=== PATIENT | female | born 1955 | race Caucasian/White ===

== ENCOUNTER → 2017-06-21 | Outpatient (CLI) | payer OTHER ==
[2017-06-21 13:13] LABS: ADD MAN DIFF? NO
[2017-06-21 13:22] LABS: BASO # 0.1 x10^3/uL (0.0-0.2); BASO % 1 % (0-3); EOS # 0.3 x10^3/uL (0.0-0.7); EOS % 3 % (0-3); HEMATOCRIT 30.9 % (36.0-47.0); HEMOGLOBIN 8.6 g/dL (12.0-15.5); LYMPH # 1.3 x10^3/uL (1.0-4.8); LYMPH % 15 % (24-48); MEAN CORPUSCULAR HEMOGLOBIN 17 pg (25-35); MEAN CORPUSCULAR HGB CONC 28 g/dL (31-37); MEAN CORPUSCULAR VOLUME 60 fL (79-100); MONO # 0.8 x10^3/uL (0.0-1.1); MONO % 9 % (0-9); NEUT # 6.3 x10^3uL (1.8-7.7); NEUT % 72 % (31-73); PLATELET COUNT 356 x10^3/uL (140-400); RED BLOOD COUNT 5.19 x10^6/uL (3.50-5.40); RED CELL DISTRIBUTION WIDTH 20.8 % (11.5-14.5); WHITE BLOOD COUNT 8.7 x10^3/uL (4.0-11.0)
[2017-06-21 13:46] LABS: ALBUMIN 2.8 g/dL (3.4-5.0); ALBUMIN/GLOBULIN RATIO 0.7 (1.0-1.7); ALK PHOS 85 U/L (46-116); ALT (SGPT) 12 U/L (14-59); ANION GAP 8 (6-14); AST (SGOT) 15 U/L (15-37); BLOOD UREA NITROGEN 11 mg/dL (7-20); BUN/CREATININE RATIO 8 (6-20); CALCIUM 8.9 mg/dL (8.5-10.1); CARBON DIOXIDE 31 mmol/L (21-32); CHLORIDE 105 mmol/L (98-107); CREATININE 1.3 mg/dL (0.6-1.0); GFR 41.5; GLUCOSE 104 mg/dL (70-99); POTASSIUM 3.9 mmol/L (3.5-5.1); SODIUM 144 mmol/L (136-145); TOTAL BILIRUBIN 0.5 mg/dL (0.2-1.0)
[2017-06-21 13:51] LABS: VITAMIN-B12 635 pg/mL (247-911)
[2017-06-21 15:08] LABS: ANISOCYTOSIS MOD; HYPOCHROMIA MARKED; MICROCYTOSIS MARKED; PLT ESTIMATE ADEQUATE (ADEQUATE); POIKILOCYTOSIS SLIGHT
[2017-06-21 15:09] LABS: OVALOCYTES FEW; SCHISTOCYTES OCC
== END | disposition home or self-care (01) ==
LOC: LAB 12:46
DX: E55.9 Vitamin D deficiency, unspecified (principal); E53.8 Deficiency of other specified B group vitamins; Z91.81 History of falling
CPT/HCPCS: 36415; 80053; 82306; 82607; 85025

== ENCOUNTER 2018-10-16 15:18 | Inpatient (IN) | payer OTHER, MEDICAID ==
[2018-10-16] VITALS (7 sets, daily range): BP systolic 141–173; BP diastolic 66–84
[~2018-10-16] VITALS: Ht 154.9 cm; Wt 57.4 kg
[~2018-10-16 15:18] MED LIST: ALBU2.5V5 NEB; ALBU2.5V8 IH; ASPI-630 PO; BUDE10.2 IH; CALC1TAB80 PO; CHOL100013 PO; CRESTOR20 MG PO; CYCL10TA2 PO; FLUT16SP NS; GABA300C18 PO; LISI10TA2 PO; MULT1TAB52 PO; PANT40TA5 PO; RANI150T2 PO; TIOT18CA IH
[2018-10-16 15:57] LABS: BILIRUBIN,URINE NEGATIVE (NEG); CLARITY,URINE CLEAR; COLOR,URINE YELLOW; NITRITE,URINE NEGATIVE (NEG); PROTEIN,URINE NEGATIVE (NEG-TRACE); UROBILINOGEN,URINE 0.2 mg/dL (0.2 mg/dL)
[2018-10-16 15:58] LABS: BASO % 0 % (0-3); EOS # 0.1 x10^3/uL (0.0-0.7); EOS % 1 % (0-3); HEMATOCRIT 45.4 % (36.0-47.0); HEMOGLOBIN 15.4 g/dL (12.0-15.5); LYMPH # 1.2 x10^3/uL (1.0-4.8); LYMPH % 14 % (24-48); MEAN CORPUSCULAR HEMOGLOBIN 32 pg (25-35); MEAN CORPUSCULAR HGB CONC 34 g/dL (31-37); MEAN CORPUSCULAR VOLUME 93 fL (79-100); MONO # 0.8 x10^3/uL (0.0-1.1); MONO % 9 % (0-9); NEUT # 6.5 x10^3uL (1.8-7.7); NEUT % 75 % (31-73); PLATELET COUNT 165 x10^3/uL (140-400); RED CELL DISTRIBUTION WIDTH 12.2 % (11.5-14.5); WHITE BLOOD COUNT 8.6 x10^3/uL (4.0-11.0)
[2018-10-16] MEDS ORDERED: IV NORMAL SALINE 1000ML BAG 1,000 ML IV ONE (16:00)
[2018-10-16 16:20] LABS: ALBUMIN 3.7 g/dL (3.4-5.0); ALBUMIN/GLOBULIN RATIO 1.2 (1.0-1.7); CALCIUM 10.5 mg/dL (8.5-10.1); CREATININE 1.1 mg/dL (0.6-1.0); MAGNESIUM 1.9 mg/dL (1.8-2.4); POTASSIUM 3.9 mmol/L (3.5-5.1); TOTAL BILIRUBIN 0.4 mg/dL (0.2-1.0); TOTAL PROTEIN 6.7 g/dL (6.4-8.2)
[2018-10-16 16:20] LABS: BARBITURATES NEG (NEG); BENZODIAZEPINES NEG (NEG); CANNABINOIDS NEG (NEG); COCAINE NEG (NEG); METHADONE NEG (NEG); OPIATES NEG (NEG); PHENCYCLIDINE NEG (NEG)
[2018-10-16 16:21] LABS: AMPHETAMINE/METHAMPHETAMINE NEG (NEG)
[2018-10-16 16:27] LABS: BACTERIA,URINE FEW /HPF (0-FEW); HYALINE CASTS, URINE FEW /HPF; SQUAMOUS EPITHELIAL CELL,UR FEW /LPF; WBC,URINE OCC /HPF (0-4)
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
[2018-10-16 16:37] LABS: ACETAMIN 58.02 mcg/ml (10-30); SALIC 7.3 mg/dL (2.8-20.0)
[2018-10-16] MEDS ORDERED: ONDANSETRON PF 4 MG/2 ML VIAL. IV PRN (16:45)
[2018-10-16] MEDS ORDERED: IBUPROFEN 400 MG TABLET. PO PRN (16:45)
[2018-10-16] MEDS ORDERED: ALBUTEROL SULFATE 2.5 MG/3 ML NEBU. NEB PRN ×2 (16:45→17:15)
[2018-10-16] MEDS ORDERED: ONDANSETRON ODT 4 MG TAB.RAPDIS. PO PRN (16:45)
[2018-10-16 16:46] LABS: CREATINE KINASE 66 U/L (26-192)
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
[2018-10-16] MEDS: PANTOPRAZOLE 40 MG TABLET.DR. PO SCH (17:15)
--- NOTE | 2018-10-16 17:40 | RAD ---
CHEST AP ONLY History: Reported overdose, fall Comparison: None. Findings: Single view of the chest is submitted. There is no infiltrate, pneumothorax, or effusion. The pericardial cardiac silhouette is within normal limits in size. There is some atherosclerotic calcification near aortic arch. Impression: 1. No acute radiographic abnormality is identified. Electronically signed by: Demario Plasencia MD (10/16/2018 5:37 PM) [facility]
[2018-10-16 17:42] LABS: ACETAMIN 46.84 mcg/ml (10-30)
[2018-10-16] MEDS: IPRATRPIUM/ALBUTEROL 0.5/2.5MG 3 ML NEBU. NEB SCH (20:05)
[2018-10-16] MEDS: BUDESONIDE 0.5 MG/2 ML NEBU. NEB SCH (20:05)
--- NOTE | 2018-10-16 20:23 | NUR ---
Pt is demanding to leave and becoming weepy. This RN explains that a social media specialist is on her way to help us determine her personal safety if we discharge her and that the SW has some resources to assist with her (and her Ganga, who called this RN, and spoke at length about the pt's medical history and social situation) homelessness beginning tomorrow at 1100 d/t eviction at [facility] [address] The patient states she took "16 tramadol and 16 tylenol" and that she made a mistake and is apologetic. Our responsibility for her personal safety is discussed. Pt remains agitated and weepy. paged for chin pike.
[2018-10-16] MEDS ORDERED: NON FORMULARY ITEM (Budesonide/Formoterol Fumarate (Symbicort 160-4.5 Mcg Inhaler) 2 PUFF) IH SCH (21:00)
[2018-10-16] MEDS: CYCLOBENZAPRINE 10 MG TABLET. PO SCH ×2 (21:00→22:50)
[2018-10-16] MEDS ORDERED: ATORVASTATIN CALCIUM 40 MG TABLET. PO SCH (21:00)
[2018-10-16 21:05] LABS: ACETAMIN 37.59 mcg/ml (10-30)
--- NOTE | 2018-10-16 21:29 | NUR ---
Heather with PAT team visited with patient and recommends that safety plan be enacted after a reassessment in the morning. No discharge recommended d/t too soon in the timeline since suicide attempt.
[2018-10-16] MEDS ORDERED: NICOTINE 14MG PATCH. TD ONE ×2 (22:47→23:30)
[2018-10-16] MEDS: CALCIUM CARBONATE 500 MG TABLET PO SCH (22:50)
[2018-10-16] MEDS: CHOLECALCIFEROL (VITAMIN D3) 1,000 UNIT TABLET PO SCH (22:50)
[2018-10-16] MEDS: FAMOTIDINE 20 MG TABLET. PO SCH (22:50)
[2018-10-16] MEDS: GABAPENTIN 300 MG CAPSULE. PO SCH (22:50)
[2018-10-16] MEDS: LISINOPRIL 10 MG TABLET PO SCH (22:51)
[2018-10-16] MEDS: ASPIRIN CHEWABLE 81 MG TABLET. PO SCH (22:51)
[2018-10-16] MEDS: IV NORMAL SALINE 1000ML BAG 1,000 ML IV SCH (23:20)
--- NOTE | 2018-10-16 23:59 | NUR ---
Pt is more relaxed following visit by PAT team bilingual social worker. Pt sleeping but arouseable.
[2018-10-17] VITALS (7 sets, daily range): BP systolic 105–125; BP diastolic 53–62
[2018-10-17] MEDS ORDERED: PIPERONYL BUTOXIDE/PYRETHRINS 118ML BOTTLE. TP ONE ×2 (01:00→06:00)
[2018-10-17 05:50] LABS: ACETAMIN < 2 mcg/ml (10-30)
--- NOTE | 2018-10-17 06:14 | EKG ---
[facility] [address] [place] [address] Test Date: 2018-10-16 Test Time: 15:30:51 Pat Name: PONCHO VALENZUELA Department: Room: Gender: F Park Recreation Manager: : 1955 Requested By: AYESHA JARA Order Number: [id number] Reading MD: Measurements Intervals [place] Rate: 74 P: 62 RI: 142 QRS: 24 QRSD: 76 T: -153 QT: 390 QTc: 438 Interpretive Statements SINUS RHYTHM QRS(T) CONTOUR ABNORMALITY CONSIDER ANTEROLATERAL MYOCARDIAL DAMAGE ST & T ABNORMALITY, CONSIDER INFEROLATERAL ISCHEMIA OR LEFT VENTRICULAR STRAIN ABNORMAL ECG RI6.01 Unconfirmed report No previous ECG available for comparison
[2018-10-17] MEDS: IV NORMAL SALINE 1000ML BAG 1,000 ML IV SCH (06:49)
[2018-10-17] MEDS: IPRATRPIUM/ALBUTEROL 0.5/2.5MG 3 ML NEBU. NEB SCH ×2 (08:00→11:19)
[2018-10-17] MEDS: BUDESONIDE 0.5 MG/2 ML NEBU. NEB SCH (08:00)
[2018-10-17] MEDS: CYCLOBENZAPRINE 10 MG TABLET. PO SCH (08:57)
[2018-10-17] MEDS: CHOLECALCIFEROL (VITAMIN D3) 1,000 UNIT TABLET PO SCH (08:57)
[2018-10-17] MEDS: LISINOPRIL 10 MG TABLET PO SCH (08:58)
[2018-10-17] MEDS: PANTOPRAZOLE 40 MG TABLET.DR. PO SCH (08:58)
[2018-10-17] MEDS: FAMOTIDINE 20 MG TABLET. PO SCH (08:58)
[2018-10-17] MEDS: GABAPENTIN 300 MG CAPSULE. PO SCH (08:58)
[2018-10-17] MEDS: CALCIUM CARBONATE 500 MG TABLET PO SCH (08:59)
[2018-10-17] MEDS: ASPIRIN CHEWABLE 81 MG TABLET. PO SCH (08:59)
[2018-10-17] MEDS ORDERED: FLUTICASONE 50MCG/NASAL SPRAY 16GM BOTTLE. NS SCH (09:00)
[2018-10-17] MEDS ORDERED: NON FORMULARY ITEM (Tiotropium Bromide (Spiriva) 1 CAP) IH SCH (09:00)
[2018-10-17] MEDS ORDERED: MULTIVITAMIN with MINERAL TABLET. PO SCH (09:00)
[2018-10-17] MEDS ORDERED: NICOTINE 14MG PATCH. TD SCH (09:00)
--- NOTE | 2018-10-17 10:44 | NUR ---
SS following for discharge planning. Pt is from home with spouse. Pt is with [facility] and has open case with APS. SW from [facility] at the hospital and reported that pt and spouse have had a bed bug issue for years and refuse to get rid of there belongings. She reported that they have now been evicted and are homeless. SS contacted homeless residential hotline and there are no beds available at this time and to call back at 1800. [facility] SW contacted APS worker and APS worker reported that they could get funds for hotel if pt agreed to get rid of all belongings. [facility] SW meeting with pt to discuss. PAT team contacted for evaluation. Jitendra from PAT team coming to evaluate.
--- NOTE | 2018-10-17 12:16 | DS ---
DATE OF DISCHARGE: 10/17/2018 ADMISSION DIAGNOSIS: Ingestion of 16 Tylenol and 16 Ultram. DISCHARGE DIAGNOSES: 1. Resolving ingestion. 2. Depression. 3. Chronic obstructive pulmonary disease. 4. Gastroesophageal reflux disease. 5. Previous stroke. 6. Hyperlipidemia. 7. Hypertension. 8. Myocardial infarction. 9. Chronic back pain. 10. Bulging disk. 11. Eye surgeries. 12. Right knee surgery. CONSULTS: The LOU team. HOSPITAL COURSE: The patient is a pleasant middle-aged female who basically got depressed because she is being evicted. She took 16 Tylenol and 16 Ultram. She was admitted overnight for observation to the ICU. This morning, I saw and examined her. She is smiling and telling jokes. Denies that she is depressed, wants to go home. I am going to consult the psychiatric assessment team. If they agree, we are going to discharge with close outpatient followup. DISPOSITION: Home. ACTIVITY: As tolerated. DIET: Low sodium. MEDICATIONS: Please see the MRAD. TOTAL TIME: 32 minutes. MINGO WILSON DO DR: ROCIO/rishi JOB#: [id number] / [id number]
--- NOTE | 2018-10-17 13:07 | NUR ---
Discharge instructions reviewed with patient, verbalized understanding. Patient has a cab coming to pick her up and take her to a clinic where her geriatric social work professor Sendy Garcia is meeting her.
--- NOTE | 2018-10-17 13:50 | NUR ---
Patient was escorted out of hospital via wheelchair by this RN and picked up by [facility].
== END 2018-10-17 13:51 | disposition home or self-care (01) | DRG 918 ==
LOC: ER 15:18 → 1 WEST ICU 16:30
PROVIDERS: ADMIT Internal Medicine; ATTEND Internal Medicine
DX: T39.1X2A Poisoning by 4-Aminophenol derivatives, intentional self-harm, initial encounter (principal); J44.9 Chronic obstructive pulmonary disease, unspecified; E78.00 Pure hypercholesterolemia, unspecified; I10 Essential (primary) hypertension; K21.9 Gastro-esophageal reflux disease without esophagitis; G89.29 Other chronic pain; F41.0 Panic disorder [episodic paroxysmal anxiety]; T40.4X2A Poisoning by other synthetic narcotics, intentional self-harm, initial encounter; F17.210 Nicotine dependence, cigarettes, uncomplicated; E66.3 Overweight; F32.9 Major depressive disorder, single episode, unspecified; E78.5 Hyperlipidemia, unspecified; Z86.73 Personal history of transient ischemic attack (TIA), and cerebral infarction without residual deficits; I25.2 Old myocardial infarction; Z90.710 Acquired absence of both cervix and uterus; Z88.8 Allergy status to other drugs, medicaments and biological substances; Y92.89 Other specified places as the place of occurrence of the external cause; Z68.29 Body mass index [BMI] 29.0-29.9, adult
CPT/HCPCS: 36415; 71045; 80053; 80307; 80329; 81001; 82553; 83735; 84484; 85025; 93005; 94640; G0480; J7030; J7620; J7626; 99285-25

== ENCOUNTER 2019-12-02 11:23 | Inpatient (IN) | payer OTHER, MEDICAID ==
[~2019-12-02] VITALS: Ht 154.9 cm; Wt 61.8 kg
[~2019-12-02 11:23] MED LIST changes: +MULT-445 PO; -MULT1TAB52 PO; -PANT40TA5 PO; +PANT40TA77 PO
[2019-12-02 12:06] LABS: BASO % 1 % (0-3); EOS # 0.2 x10^3/uL (0.0-0.7); EOS % 4 % (0-3); HEMATOCRIT 43.1 % (36.0-47.0); LYMPH # 1.2 x10^3/uL (1.0-4.8); LYMPH % 23 % (24-48); MEAN CORPUSCULAR HEMOGLOBIN 32 pg (25-35); MEAN CORPUSCULAR HGB CONC 35 g/dL (31-37); MEAN CORPUSCULAR VOLUME 91 fL (79-100); MONO # 0.5 x10^3/uL (0.0-1.1); MONO % 9 % (0-9); NEUT # 3.2 x10^3/uL (1.8-7.7); NEUT % 63 % (31-73); PLATELET COUNT 193 x10^3/uL (140-400); RED BLOOD COUNT 4.74 x10^6/uL (3.50-5.40); RED CELL DISTRIBUTION WIDTH 13.2 % (11.5-14.5); WHITE BLOOD COUNT 5.1 x10^3/uL (4.0-11.0)
[2019-12-02 12:08] LABS: CALCIUM 8.9 mg/dL (8.5-10.1); CREATININE 1.2 mg/dL (0.6-1.0); GFR 45.1
[2019-12-02 12:09] LABS: BILIRUBIN,URINE NEGATIVE (NEG); CLARITY,URINE CLEAR; COLOR,URINE YELLOW; NITRITE,URINE NEGATIVE (NEG); PH,URINE 7.5 (<5.0-8.0); PROTEIN,URINE NEGATIVE (NEG-TRACE); UROBILINOGEN,URINE 0.2 mg/dL (0.2 mg/dL)
[2019-12-02 12:14] LABS: ALBUMIN 3.1 g/dL (3.4-5.0); TOTAL BILIRUBIN 0.4 mg/dL (0.2-1.0); TOTAL PROTEIN 6.3 g/dL (6.4-8.2)
[2019-12-02 12:15] LABS: PROTHROMBIN TIME PATIENT 13.2 SEC (11.7-14.0)
[2019-12-02 12:29] LABS: BACTERIA,URINE FEW /HPF (0-FEW); RBC,URINE OCC /HPF (0-2); SQUAMOUS EPITHELIAL CELL,UR FEW /LPF
[2019-12-02 12:30] LABS: AMORPHOUS SEDIMENT,UR PRESENT /HPF
[2019-12-02] MEDS ORDERED: CONTRAST GIVEN. MC PRN (12:30)
[2019-12-02] MEDS ORDERED: IOHEXOL 300 MG/ML 100ML VIAL. IV ONE (12:30)
--- NOTE | 2019-12-02 13:07 | RAD ---
CT brain without contrast. HISTORY: Recent fall, extremity weakness, concern for stroke CT scan of brain was done without contrast. Sinuses are clear. A skull fracture is not identified. There is no mass or shift of the midline. There is mild diffuse atrophy. An acute CVA is not identified. Lateral ventricles are normal in size. There is focal decreased density in the lateral basal ganglia on the right an old small lacunar infarct possible. IMPRESSION: 1. Atrophy. 2. No intracranial hemorrhage. 3. Probable old lacunar infarct right lateral basal ganglia. 4. An acute CVA is not identified. PQRS Compliance Statement: One or more of the following individualized dose reduction techniques were utilized for this examination: 1. Automated exposure control 2. Adjustment of the mA and/or kV according to patient size 3. Use of iterative reconstruction technique Electronically signed by: Laron Montgomery MD (12/02/2019 1:04 PM) [facility]
--- NOTE | 2019-12-02 13:37 | RAD ---
CT ANGIOGRAPHY HEAD AND NECK History:Reason: concern for stroke, EXTREMITY WEAKNESS, RECENT FALL / Spl. Instructions: [id number] 60ML / History: Technique: After bolus of intravenous contrast, volumetric CT data acquisition was acquired of the head and neck. Multiplanar reconstruction images to include MIP and 3-D reconstruction images are submitted. Exposure: One or more of the following individualized dose reduction techniques were utilized for this examination: 1. Automated exposure control 2. Adjustment of the mA and/or kV according to patient size 3. Use of iterative reconstruction technique. Comparison: None Any determination of stenosis is based on NASCET criteria. Head CTA: ICA: Bilateral carotid siphon calcifications with mild narrowing. No occlusion. MCA: No stenosis, occlusion or aneurysm. DEBORA: No stenosis, occlusion or aneurysm. TECHNOLOGY SALES REPRESENTATIVE: No stenosis, occlusion or aneurysm. Basilar artery: No stenosis, occlusion or aneurysm. Distal vertebral arteries: No stenosis, occlusion or aneurysm. CT angiogram neck: Aortic arch: Atheromatous plaque within the aortic arch and branch vessels. Common carotid arteries: Mild narrowing of the left common carotid artery origin. Mild atheromatous plaque. Internal carotid arteries: Heavy calcification within the bilateral carotid bifurcations. Severe 70 percent narrowing of the right proximal internal carotid artery due to soft and calcified plaque. Severe 70 percent narrowing of the left proximal internal carotid artery due to calcified plaque. No occlusion. External carotid arteries: Narrowing of the bilateral external carotid artery origins. Vertebral arteries: Occlusion of the left vertebral artery with intermittent reconstitution via collaterals. Retrograde filling of the distal left vertebral artery. 3 mm left upper lobe pulmonary nodule (series 11 image 1). Soft tissues appear normal. Bones: Multilevel cervical spondylosis most prominent C5-C6 and C6-C7. Multilevel neuroforaminal narrowing. No high-grade canal stenosis. C7 posterior vertebral body hemangioma. Multifocal carious dentition with periodontal disease. Impression: 1. 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 2. High-grade narrowing of the bilateral proximal internal carotid arteries within the neck. 3. Additional atheromatous disease within the head and neck. 4. Tiny left upper lobe pulmonary nodule. Recommend one-year follow-up if high risk. Electronically signed by: Geoffrey Grewal DO (12/02/2019 1:34 PM) [id number]
--- NOTE | 2019-12-02 14:39 | PDOC1 ---
History and Physical Date of Admission Date of Admission DATE: 12/02/19 TIME: 14:39 Identification/Chief Complaint Chief Complaint seen in er , 64 year old female who presents with altered mental status. According to EMS patient was last seen well right before bed last night.// noticed when she got up this morning to make breakfast she was not acting right. // was speaking abnormally. He noted she was generally weak. History is limited from the patient. She is oriented to place and time. // she feels very lethargic. She denies any pain. She denies any headache. fell and hit her head [address] HEAD C/W OLD RIGHT LACUNAR INFARCT Past Medical History Cardiovascular: HTN Pulmonary: Bronchitis, COPD Musculoskeletal: Osteoarthritis Past Surgical History Past Surgical History: No pertinent history Family History Family History: Hypertension, Family History Unknown Social History Smoke: <1 pack per day ALCOHOL: occassional Drugs: None Current Medications Current Medications Current Medications Iohexol (Omnipaque 300 Mg/ml) 60 ml 1X ONCE IV Last administered on 12/02/19at 12:48; Start 12/02/19 at 12:30; Stop 12/02/19 at 12:31; Status DC Info (CONTRAST GIVEN -- Rx MONITORING) 1 each PRN DAILY PRN MC SEE COMMENTS; Start 12/02/19 at 12:30; Stop 12/04/19 at 12:29 Active Scripts Active Reported Aspirin 81 Mg Tab.chew 1 Tab PO DAILY Vitamin D (Cholecalciferol (Vitamin D3)) 1,000 Unit Capsule 400 Unit PO BID Multivitamins (Multivitamin) 1 Each Tablet 1 Tab PO DAILY Calcium 600 + Vit D Tablet (Calcium Carbonate/Vitamin D3) 1 Each Tablet 1 Each PO BID Cyclobenzaprine Hcl 10 Mg Tablet 1 Tab PO TID Fluticasone Propionate Nasal [place] (Fluticasone Propionate) 16 Gm [place].susp 1 [place] NS DAILY Symbicort 160-4.5 Mcg Inhaler (Budesonide/Formoterol Fumarate) 10.2 Gm Hfa.aer.ad 2 Puff IH BID Spiriva (Tiotropium [place]) 18 Mcg Cap.w.dev 1 Cap IH DAILY Proair Hfa Inhaler (Albuterol Sulfate) 8.5 Gm Hfa.aer.ad 2 Puff IH PRN Q4-6HRS Ranitidine Hcl 150 Mg Tablet 1 Tab PO BID Pantoprazole Sodium 40 Mg Tablet. 1 Tab PO BID Lisinopril 10 Mg Tablet 1 Tab PO DAILY Gabapentin (Gabapentin) 300 Mg Capsule 1 Cap PO BID Crestor (Rosuvastatin Calcium) 20 Mg Tablet 1 Tab PO DAILY Albuterol Sulfate Neb Soln (Albuterol Sulfate) 2.5 Mg/3 Ml Vial.neb 1 Vial NEB QID Allergies Allergies: Coded Allergies: amitriptyline (Verified Allergy, Intermediate, 12/16/14) esomeprazole (Verified Allergy, Intermediate, RASH, 12/16/14) Physical Exam Physical Exam General: Lethargic, NAD. Well Nourished, well hydrated. Cooperative HEENT: Atraumatic, EOMI, PERRL, airway patent, moist oral mucosa POOR DENTITION Neck: Supple, trachea midline Respiratory: CTA bilaterally, normal effort, no wheezing/crackles CV: RRR, no murmur, cap refill <2 GI: Soft, nondistended, nontender, no masses MSK: No obvious deformities Skin: Warm, dry, intact Neuro: A&O x3, speech slow and slurred, diffuse weakness worse on the right arm and leg, right-sided facial droop, sensation intact Psych: Normal affect, normal mood, not suicidal or homicidal General: Cooperative, No acute distress HEENT: Atraumatic, EOMI Lungs: Normal air movement Heart: RRR Breasts: Not examined Abdomen: Normal bowel sounds, Soft Rectal Exam: not examined PELVIC: Examination not indicated Extremities: No cyanosis Skin: No breakdown Psych/Mental Status: Mood NL Vitals Vitals Vital Signs Date Time Temp Pulse Resp B/P (MAP) Pulse Ox O2 Delivery O2 Flow Rate FiO2 12/02/19 14:24 62 174/81 (112) 97 Room Air 12/02/19 11:23 98.2 16 98.2 Labs Labs Laboratory Tests Test 12/02/19 11:40 12/02/19 11:45 Urine Collection Type Unknown Urine Color Yellow Urine Clarity Clear Urine pH 7.5 (<5.0-8.0) Urine Specific [place] 1.015 (1.000-1.030) Urine Protein Negative mg/dL (NEG-TRACE) Urine Glucose (UA) Negative mg/dL (NEG) Urine Ketones (Stick) Negative mg/dL (NEG) Urine Blood Negative (NEG) Urine Nitrite Negative (NEG) Urine Bilirubin Negative (NEG) Urine Urobilinogen Dipstick 0.2 mg/dL (0.2 mg/dL) Urine Leukocyte Esterase Small (NEG) Urine RBC Occ /HPF (0-2) Urine WBC 5-10 /HPF (0-4) Urine Squamous Epithelial Cells Few /LPF Urine Amorphous Sediment Present /HPF Urine Bacteria Few /HPF (0-FEW) White Blood Count 5.1 x10^3/uL (4.0-11.0) Red Blood Count 4.74 x10^6/uL (3.50-5.40) Hemoglobin 15.0 g/dL (12.0-15.5) Hematocrit 43.1 % (36.0-47.0) Mean Corpuscular Volume 91 fL (79-100) Mean Corpuscular Hemoglobin 32 pg (25-35) Mean Corpuscular Hemoglobin Concent 35 g/dL (31-37) Red Cell Distribution Width 13.2 % (11.5-14.5) Platelet Count 193 x10^3/uL (140-400) Neutrophils (%) (Auto) 63 % (31-73) Lymphocytes (%) (Auto) 23 % (24-48) Monocytes (%) (Auto) 9 % (0-9) Eosinophils (%) (Auto) 4 % (0-3) Basophils (%) (Auto) 1 % (0-3) Neutrophils # (Auto) 3.2 x10^3/uL (1.8-7.7) Lymphocytes # (Auto) 1.2 x10^3/uL (1.0-4.8) Monocytes # (Auto) 0.5 x10^3/uL (0.0-1.1) Eosinophils # (Auto) 0.2 x10^3/uL (0.0-0.7) Basophils # (Auto) 0.0 x10^3/uL (0.0-0.2) Prothrombin Time 13.2 SEC (11.7-14.0) Prothromb Time International Ratio 1.0 (0.8-1.1) Sodium Level 141 mmol/L (136-145) Potassium Level 4.0 mmol/L (3.5-5.1) Chloride Level 106 mmol/L (98-107) Carbon Dioxide Level 28 mmol/L (21-32) Anion Gap 7 (6-14) Blood Urea Nitrogen 18 mg/dL (7-20) Creatinine 1.2 mg/dL (0.6-1.0) Estimated GFR (Cockcroft-Gault) 45.1 BUN/Creatinine Ratio 15 (6-20) Glucose Level 104 mg/dL (70-99) Calcium Level 8.9 mg/dL (8.5-10.1) Total Bilirubin 0.4 mg/dL (0.2-1.0) Aspartate Amino Transf (AST/SGOT) 17 U/L (15-37) Alanine Aminotransferase (ALT/SGPT) 18 U/L (14-59) Alkaline Phosphatase 66 U/L (46-116) Troponin I Quantitative < 0.017 ng/mL (0.000-0.055) Total Protein 6.3 g/dL (6.4-8.2) Albumin 3.1 g/dL (3.4-5.0) Albumin/Globulin Ratio 1.0 (1.0-1.7) Laboratory Tests Test 12/02/19 11:40 12/02/19 11:45 Urine Collection Type Unknown Urine Color Yellow Urine Clarity Clear Urine pH 7.5 (<5.0-8.0) Urine Specific [place] 1.015 (1.000-1.030) Urine Protein Negative mg/dL (NEG-TRACE) Urine Glucose (UA) Negative mg/dL (NEG) Urine Ketones (Stick) Negative mg/dL (NEG) Urine Blood Negative (NEG) Urine Nitrite Negative (NEG) Urine Bilirubin Negative (NEG) Urine Urobilinogen Dipstick 0.2 mg/dL (0.2 mg/dL) Urine Leukocyte Esterase Small (NEG) Urine RBC Occ /HPF (0-2) Urine WBC 5-10 /HPF (0-4) Urine Squamous Epithelial Cells Few /LPF Urine Amorphous Sediment Present /HPF Urine Bacteria Few /HPF (0-FEW) White Blood Count 5.1 x10^3/uL (4.0-11.0) Red Blood Count 4.74 x10^6/uL (3.50-5.40) Hemoglobin 15.0 g/dL (12.0-15.5) Hematocrit 43.1 % (36.0-47.0) Mean Corpuscular Volume 91 fL (79-100) Mean Corpuscular Hemoglobin 32 pg (25-35) Mean Corpuscular Hemoglobin Concent 35 g/dL (31-37) Red Cell Distribution Width 13.2 % (11.5-14.5) Platelet Count 193 x10^3/uL (140-400) Neutrophils (%) (Auto) 63 % (31-73) Lymphocytes (%) (Auto) 23 % (24-48) Monocytes (%) (Auto) 9 % (0-9) Eosinophils (%) (Auto) 4 % (0-3) Basophils (%) (Auto) 1 % (0-3) Neutrophils # (Auto) 3.2 x10^3/uL (1.8-7.7) Lymphocytes # (Auto) 1.2 x10^3/uL (1.0-4.8) Monocytes # (Auto) 0.5 x10^3/uL (0.0-1.1) Eosinophils # (Auto) 0.2 x10^3/uL (0.0-0.7) Basophils # (Auto) 0.0 x10^3/uL (0.0-0.2) Prothrombin Time 13.2 SEC (11.7-14.0) Prothromb Time International Ratio 1.0 (0.8-1.1) Sodium Level 141 mmol/L (136-145) Potassium Level 4.0 mmol/L (3.5-5.1) Chloride Level 106 mmol/L (98-107) Carbon Dioxide Level 28 mmol/L (21-32) Anion Gap 7 (6-14) Blood Urea Nitrogen 18 mg/dL (7-20) Creatinine 1.2 mg/dL (0.6-1.0) Estimated GFR (Cockcroft-Gault) 45.1 BUN/Creatinine Ratio 15 (6-20) Glucose Level 104 mg/dL (70-99) Calcium Level 8.9 mg/dL (8.5-10.1) Total Bilirubin 0.4 mg/dL (0.2-1.0) Aspartate Amino Transf (AST/SGOT) 17 U/L (15-37) Alanine Aminotransferase (ALT/SGPT) 18 U/L (14-59) Alkaline Phosphatase 66 U/L (46-116) Troponin I Quantitative < 0.017 ng/mL (0.000-0.055) Total Protein 6.3 g/dL (6.4-8.2) Albumin 3.1 g/dL (3.4-5.0) Albumin/Globulin Ratio 1.0 (1.0-1.7) Images Images CT brain without contrast. HISTORY: Recent fall, extremity weakness, concern for stroke CT scan of brain was done without contrast. Sinuses are clear. A skull fracture is not identified. There is no mass or shift of the midline. There is mild diffuse atrophy. An acute CVA is not identified. Lateral ventricles are normal in size. There is focal decreased density in the lateral basal ganglia on the right an old small lacunar infarct possible. IMPRESSION: 1. Atrophy. 2. No intracranial hemorrhage. 3. Probable old lacunar infarct right lateral basal ganglia. 4. An acute CVA is not identified. PQRS Compliance Statement: One or more of the following individualized dose reduction techniques were utilized for this examination: 1. Automated exposure control 2. Adjustment of the mA and/or kV according to patient size 3. Use of iterative reconstruction technique Electronically signed by: Laron Montgomery MD (12/02/2019 1:04 PM) [facility] CT ANGIOGRAPHY HEAD AND NECK History:Reason: concern for stroke, EXTREMITY WEAKNESS, RECENT FALL / Spl. Instructions: [id number] 60ML / History: Technique: After bolus of intravenous contrast, volumetric CT data acquisition was acquired of the head and neck. Multiplanar reconstruction images to include MIP and 3-D reconstruction images are submitted. Exposure: One or more of the following individualized dose reduction techniques were utilized for this examination: 1. Automated exposure control 2. Adjustment of the mA and/or kV according to patient size 3. Use of iterative reconstruction technique. Comparison: None Any determination of stenosis is based on NASCET criteria. Head CTA: ICA: Bilateral carotid siphon calcifications with mild narrowing. No occlusion. MCA: No stenosis, occlusion or aneurysm. DEBORA: No stenosis, occlusion or aneurysm. SPORTS MARKETING COORDINATOR: No stenosis, occlusion or aneurysm. Basilar artery: No stenosis, occlusion or aneurysm. Distal vertebral arteries: No stenosis, occlusion or aneurysm. CT angiogram neck: Aortic arch: Atheromatous plaque within the aortic arch and branch vessels. Common carotid arteries: Mild narrowing of the left common carotid artery origin. Mild atheromatous plaque. Internal carotid arteries: Heavy calcification within the bilateral carotid bifurcations. Severe 70 percent narrowing of the right proximal internal carotid artery due to soft and calcified plaque. Severe 70 percent narrowing of the left proximal internal carotid artery due to calcified plaque. No occlusion. External carotid arteries: Narrowing of the bilateral external carotid artery origins. Vertebral arteries: Occlusion of the left vertebral artery with intermittent reconstitution via collaterals. Retrograde filling of the distal left vertebral artery. 3 mm left upper lobe pulmonary nodule (series 11 image 1). Soft tissues appear normal. Bones: Multilevel cervical spondylosis most prominent C5-C6 and C6-C7. Multilevel neuroforaminal narrowing. No high-grade canal stenosis. C7 posterior vertebral body hemangioma. Multifocal carious dentition with periodontal disease. Impression: 1. 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 2. High-grade narrowing of the bilateral proximal internal carotid arteries within the neck. 3. Additional atheromatous disease within the head and neck. 4. Tiny left upper lobe pulmonary nodule. Recommend one-year follow-up if high risk. Electronically signed by: Geoffrey Vasquez DO (12/02/2019 1:34 PM) [id number] DICTATED and SIGNED BY: GEOFFREY VASQUEZ DO DATE: 12/02/19 1334 VTE Prophylaxis Ordered VTE Prophylaxis Devices: Yes VTE Pharmacological Prophylaxi: Yes Assessment/Plan Assessment/Plan Impression 1. Acute neurological symptoms/ TIA// CVA 2. 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 3. High-grade narrowing of the bilateral proximal internal carotid arteries within the neck. 4. Additional atheromatous disease within the head and neck. 5. Tiny left upper lobe pulmonary nodule. Recommend one-year follow-up if high risk. 6. C7 posterior vertebral body hemangioma. 7. Multifocal carious dentition with periodontal disease, ADVANCED DENTAL DISEASE 8.. Depression. 9. Chronic obstructive pulmonary disease. 10. Gastroesophageal reflux disease. 11. Previous stroke. cerebral Atrophy. No intracranial hemorrhage. Probable old lacunar infarct right lateral basal ganglia. An acute CVA is not identified. by ct head 12/01 12 Hyperlipidemia. 13. Hypertension.UNCONTROLLED 14. Myocardial infarction. REMOTE 15. Chronic back pain. 16. Bulging disk. PLAN ADMIT Neurology consult neurochecks q 4 hrs tele monitor home meds PT/OT/ST CARDIOLOGY CONSULT CONSIDER MRI HEAD dvt prophylaxis ASA VASCULAR SURG CONSULT 76 MIN pt exam, chart review, > 50% of time spent with exam, chart review, pt care coordination Justicifation of Admission Dx: Justifications for Admission: Justification of Admission Dx: Yes Stroke - Ischemic: Stroke-Ischemic Altered Mental Status: Altered Mental Status WAYNE POOL MD Dec 02, 2019 14:39
[2019-12-02] MEDS ORDERED: ALBUTEROL SULFATE 2.5 MG/3 ML NEBU. INH PRN (15:00)
--- NOTE | 2019-12-02 15:08 | PHYS DOC ---
Past Medical History Past Medical History: COPD, CVA, GERD, High Cholesterol, Hypertension, HI, Other Additional Past Medical Histor: CHRONIC BACK PAIN, BULGING DISCS X 2, CVA X 4, HI X 3 Past Surgical History: Hysterectomy, Other Additional Past Surgical Histo: EYE SURG X2, RIGHT KNEE SURG, CYST REMOVED FROM EAR Smoking Status: Current Every Day Smoker Alcohol Use: None Drug Use: None General Adult EDM: Chief Complaint: NEURO SYMPTOMS/DEFICITS HPI: HPI: Patient is a 64 year old female who presents with altered mental status. According to EMS patient was last seen well right before bed last night. Her noticed when she got up this morning to make breakfast she was not acting right. She also was speaking abnormally. He noted she was generally weak. History is limited from the patient. She is oriented to place and time. She states that she feels very lethargic. She denies any pain. She denies any headache. She did fall and hit her head 2 days ago. She is not on blood thinners. She did not have any problems right after she fell. Review of Systems: Review of Systems: Unable to obtain due to altered mental status Heart Score: Risk Factors: Risk Factors: DM, Current or recent (<one month) smoker, HTN, HLP, family history of CAD, obesity. Risk Scores: Score 0 - 3: 2.5% MACE over next 6 weeks - Discharge Home Score 4 - 6: 20.3% MACE over next 6 weeks - Admit for Clinical Observation Score 7 - 10: 72.7% MACE over next 6 weeks - Early Invasive Strategies Current Medications: Current Medications Medications (Trade) Dose Ordered Sig/[facility] Start Time Stop Time Status Last Admin Dose Admin Albuterol Sulfate (Ventolin Neb Soln) 2.5 mg PRN Q4HRS PRN 12/02/19 15:00 UNV Aspirin (Aspirin Chewable) 81 mg DAILY 12/03/19 09:00 UNV Fluticasone Propionate (Flonase) 1 spray DAILY 12/03/19 09:00 UNV Gabapentin (Neurontin) 300 mg BID 12/02/19 21:00 UNV Info (CONTRAST GIVEN -- Rx MONITORING) 1 each PRN DAILY PRN 12/02/19 12:30 12/04/19 12:29 Iohexol (Omnipaque 300 Mg/ml) 60 ml 1X ONCE 12/02/19 12:30 12/02/19 12:31 DC 12/02/19 12:48 60 ML Lisinopril (Prinivil) 10 mg DAILY 12/03/19 09:00 UNV Non-Formulary Medication (Budesonide/ Formoterol Fumarate (Symbicort 160-4.5 Mcg Inhaler)) 2 puff BID 12/02/19 21:00 UNV Non-Formulary Medication (Calcium Carbonate/Vitamin D3 (Calcium 600 + Vit D Tablet)) 1 each BID 12/02/19 21:00 UNV Non-Formulary Medication (Cholecalciferol (Vitamin D3) (Vitamin D)) 400 unit BID 12/02/19 21:00 UNV Non-Formulary Medication (Multivitamin (Multivitamins)) 1 tab DAILY 12/03/19 09:00 UNV Non-Formulary Medication (Ranitidine Hcl ) 1 tab BID 12/02/19 21:00 UNV Non-Formulary Medication (Rosuvastatin Calcium (Crestor)) 1 tab DAILY 12/03/19 09:00 UNV Pantoprazole Sodium (Protonix) 40 mg BID 12/02/19 21:00 UNV Allergies: Allergies: Allergies Coded Allergies Type Severity Reaction Last Updated Verified amitriptyline Allergy Intermediate 12/16/14 Yes esomeprazole Allergy Intermediate RASH 12/16/14 Yes Physical Exam: PE: General: Lethargic, NAD. Well Nourished, well hydrated. Cooperative HEENT: Atraumatic, EOMI, PERRL, airway patent, moist oral mucosa Neck: Supple, trachea midline Respiratory: CTA bilaterally, normal effort, no wheezing/crackles CV: RRR, no murmur, cap refill <2 GI: Soft, nondistended, nontender, no masses MSK: No obvious deformities Skin: Warm, dry, intact Neuro: A&O x3, speech slow and slurred, diffuse weakness worse on the right arm and leg, right-sided facial droop, sensation intact Psych: Normal affect, normal mood, not suicidal or homicidal Current Patient Data: Labs: Laboratory Tests Test 12/02/19 11:40 12/02/19 11:45 Urine Collection Type Unknown Urine Color Yellow Urine Clarity Clear Urine pH 7.5 (<5.0-8.0) Urine Specific [place] 1.015 (1.000-1.030) Urine Protein Negative mg/dL (NEG-TRACE) Urine Glucose (UA) Negative mg/dL (NEG) Urine Ketones (Stick) Negative mg/dL (NEG) Urine Blood Negative (NEG) Urine Nitrite Negative (NEG) Urine Bilirubin Negative (NEG) Urine Urobilinogen Dipstick 0.2 mg/dL (0.2 mg/dL) Urine Leukocyte Esterase Small (NEG) Urine RBC Occ /HPF (0-2) Urine WBC 5-10 /HPF (0-4) Urine Squamous Epithelial Cells Few /LPF Urine Amorphous Sediment Present /HPF Urine Bacteria Few /HPF (0-FEW) White Blood Count 5.1 x10^3/uL (4.0-11.0) Red Blood Count 4.74 x10^6/uL (3.50-5.40) Hemoglobin 15.0 g/dL (12.0-15.5) Hematocrit 43.1 % (36.0-47.0) Mean Corpuscular Volume 91 fL (79-100) Mean Corpuscular Hemoglobin 32 pg (25-35) Mean Corpuscular Hemoglobin Concent 35 g/dL (31-37) Red Cell Distribution Width 13.2 % (11.5-14.5) Platelet Count 193 x10^3/uL (140-400) Neutrophils (%) (Auto) 63 % (31-73) Lymphocytes (%) (Auto) 23 % (24-48) L Monocytes (%) (Auto) 9 % (0-9) Eosinophils (%) (Auto) 4 % (0-3) H Basophils (%) (Auto) 1 % (0-3) Neutrophils # (Auto) 3.2 x10^3/uL (1.8-7.7) Lymphocytes # (Auto) 1.2 x10^3/uL (1.0-4.8) Monocytes # (Auto) 0.5 x10^3/uL (0.0-1.1) Eosinophils # (Auto) 0.2 x10^3/uL (0.0-0.7) Basophils # (Auto) 0.0 x10^3/uL (0.0-0.2) Prothrombin Time 13.2 SEC (11.7-14.0) Prothrombin Time INR 1.0 (0.8-1.1) Sodium Level 141 mmol/L (136-145) Potassium Level 4.0 mmol/L (3.5-5.1) Chloride Level 106 mmol/L (98-107) Carbon Dioxide Level 28 mmol/L (21-32) Anion Gap 7 (6-14) Blood Urea Nitrogen 18 mg/dL (7-20) Creatinine 1.2 mg/dL (0.6-1.0) H Estimated GFR (Cockcroft-Gault) 45.1 BUN/Creatinine Ratio 15 (6-20) Glucose Level 104 mg/dL (70-99) H Calcium Level 8.9 mg/dL (8.5-10.1) Total Bilirubin 0.4 mg/dL (0.2-1.0) Aspartate Amino Transferase (AST) 17 U/L (15-37) Alanine Aminotransferase (ALT) 18 U/L (14-59) Alkaline Phosphatase 66 U/L (46-116) Troponin I Quantitative < 0.017 ng/mL (0.000-0.055) Total Protein 6.3 g/dL (6.4-8.2) L Albumin 3.1 g/dL (3.4-5.0) L Albumin/Globulin Ratio 1.0 (1.0-1.7) Laboratory Tests 12/02/19 11:45 Laboratory Tests 12/02/19 11:45 Vital Signs: Vital Signs Date Time Temp Pulse Resp B/P (MAP) Pulse Ox O2 Delivery O2 Flow Rate FiO2 12/02/19 14:24 62 174/81 (112) 97 Room Air 12/02/19 11:23 98.2 16 98.2 EKG: EKG: [] Radiology/Procedures: Radiology/Procedures: [] Course & Med Decision Making: Course & Med Decision Making Pertinent Labs and Imaging studies reviewed. (See chart for details) Patient is a 64 year-old female who presents to the Emergency Room with neurologic complaints that are concerning for an acute stroke. Stroke protocol was set off upon arrival to the Emergency Room and patient was taken for a CT head. At time of arrival, patient is protecting their airway and does not need intubation at this time. CT head shows atrophy. At this time, patient is not a candidate for tPA as she is out of the window it is unclear what her last known well time was.. Further work up was ordered to help risk stratify patient and to evaluate for other causes of neurologic deficits including CBC, BMP, troponin, EKG, CXR, magnesium. At this time, CT angio head/neck is indicated and patient is not be a potential candidate for IR clot retreival. CT angios shows likely chronic vertebral artery occlusion and stenosis of bilateral internal carotid arteries. Patient will be admitted for neurology evaluation. Plan of care was discussed with patient/family and all questions were answered. Dragon Disclaimer: Dragon Disclaimer: This electronic medical record was generated, in whole or in part, using a voice recognition dictation system. Critical Care Time Critical Care: Authorized and Performed by: Donaldo Whitney MD Total critical care time: approximately 45 minutes Due to a high probability of clinically significant, life threatening deterioration, the patient required my highest level of preparedness to intervene emergently and I personally spent this critical care time directly and personally managing the patient. This critical care time included obtaining a history; examining the patient; pulse oximetry; ventilator management if necessary; ordering and review of studies; arranging urgent treatment with development of a management plan; evaluation of patient's response to treatment; frequent reassessment; discussion with patient/family; and, discussions with other providers. This critical care time was performed to assess and manage the high probability of imminent, life-threatening deterioration that could result in multi-organ failure. It was exclusive of separately billable procedures and treating other patients and teaching time. Please see MDM section and the rest of the note for further information on patient assessment and treatment. Departure Departure Impression: Primary Impression: Stroke Additional Impressions: Vertebral artery occlusion Carotid artery disease Disposition: ADMITTED INPATIENT Condition: GOOD Referrals: SANG REY DO (PCP) Justicifation of Admission Dx: Justifications for Admission: Justification of Admission Dx: Yes DONALDO WHITNEY MD Dec 02, 2019 15:08
[2019-12-02] MEDS ORDERED: ALBUTEROL SULFATE 2.5 MG/3 ML NEBU. NEB SCH (16:00)
--- NOTE | 2019-12-02 16:37 | NUR ---
Pt admitted to room 656 from ED. Received report from EMEKA Alvarado. NIH done at bedside and patient scored a 10. all belongings left with patient at the time of admission.
[2019-12-02] MEDS: IPRATRPIUM/ALBUTEROL 0.5/2.5MG 3 ML NEBU. NEB SCH ×2 (17:13→19:42)
[2019-12-02] MEDS ORDERED: ONDANSETRON PF 4 MG/2 ML VIAL. IV PRN (17:15)
[2019-12-02] MEDS ORDERED: LORazepam 0.5 MG TABLET PO PRN (17:15)
[2019-12-02] MEDS ORDERED: guaiFENesin ORAL 200 MG/10 ML LIQUID. PO PRN (17:15)
[2019-12-02] MEDS ORDERED: ACETAMINOPHEN 650 MG SUPP.RECT. PR PRN (17:15)
[2019-12-02] MEDS ORDERED: 0.9 % SODIUM CHLORIDE 10 ML DISP.SYRIN. IV PRN (17:15)
[2019-12-02] MEDS: ASPIRIN CHEWABLE 81 MG TABLET. PO SCH (17:42)
[2019-12-02] MEDS: PANTOPRAZOLE 40 MG TABLET.DR. PO SCH (17:42)
[2019-12-02] MEDS: CALCIUM CARB/VIT D3 500/200 TABLET. PO SCH (17:42)
[2019-12-02] MEDS: IV NORMAL SALINE 1000ML BAG 1,000 ML IV SCH (17:43)
[2019-12-02] MEDS ORDERED: GABA-689 PO (18:16)
[2019-12-02] MEDS ORDERED: PRAV40TA2 PO (18:16)
[2019-12-02] MEDS ORDERED: FAMO10TA26 PO (18:16)
[2019-12-02] MEDS ORDERED: CETI10TA16 PO (18:16)
[2019-12-02 19:10] VITALS: BP 153/54
[2019-12-02] MEDS: BUDESONIDE 0.5 MG/2 ML NEBU. NEB SCH (19:42)
[2019-12-02] MEDS: ATORVASTATIN CALCIUM 40 MG TABLET. PO SCH (20:16)
[2019-12-02] MEDS: CHOLECALCIFEROL (VITAMIN D3) 1,000 UNIT TABLET PO SCH (20:16)
[2019-12-02] MEDS: GABAPENTIN 300 MG CAPSULE. PO SCH (20:16)
[2019-12-02] MEDS ORDERED: NON FORMULARY ITEM (Ranitidine Hcl 1 TAB) PO SCH (21:00)
[2019-12-02] MEDS ORDERED: NICOTINE 21MG PATCH. TD ONE (21:00)
[2019-12-02] MEDS ORDERED: NON FORMULARY ITEM (Budesonide/Formoterol Fumarate (Symbicort 160-4.5 Mcg Inhaler) 2 PUFF) IH SCH (21:00)
[2019-12-02 23:49] VITALS: BP 175/75
[2019-12-03 03:24] VITALS: BP 160/71
[2019-12-03 05:08] LABS: CHOLESTEROL/HDL RATIO 4.2
[2019-12-03] MEDS: IV NORMAL SALINE 1000ML BAG 1,000 ML IV SCH ×2 (05:31→18:01)
--- NOTE | 2019-12-03 06:16 | EKG ---
[facility] [address] [place] [address] Test Date: 2019-12-02 Test Time: 11:34:23 Pat Name: PONCHO VALENZUELA Department: Room: Gender: F Interventional Pain Physician: : [id number] Requested By: DONALDO ARDON Order Number: [id number] Reading MD: Measurements Intervals [place] Rate: 71 P: 59 [place]: 144 QRS: 19 QRSD: 72 T: 214 QT: 394 QTc: 428 Interpretive Statements SINUS RHYTHM T ABNORMALITY IN ANTERIOR LEADS LATERAL LEADS ABNORMAL ECG RI6.02 No previous ECG available for comparison
[2019-12-03] MEDS: IPRATRPIUM/ALBUTEROL 0.5/2.5MG 3 ML NEBU. NEB SCH ×4 (07:18→20:24)
[2019-12-03] MEDS: BUDESONIDE 0.5 MG/2 ML NEBU. NEB SCH ×2 (07:18→20:24)
[2019-12-03 07:20] VITALS: BP 139/53
--- NOTE | 2019-12-03 07:27 | PDOC2 ---
OCTAVIO PETERSON HEAD PACKAGER 12/03/19 0727: CARDIAC CONSULT DATE OF CONSULT Date of Consult DATE: 12/03/19 TIME: 1400 REASON FOR CONSULT Reason for Consult: uncontrolled HTN REFERRING PHYSICIAN Referring Physician: Fullbright SOURCE Source: Chart review, Patient HISTORY OF PRESENT ILLNESS HISTORY OF PRESENT ILLNESS This is a 64 yo female admitted for complains of altered mental status. She was just at [facility] on 11/22/2019 and was being workup for CVA but apparently she left AMA. She has had significant neuro workup in the last few months at [facility]. She has hx of stroke with right sided hemiparesis. She was reported by her that she was not acting right and did not make any sense hence this admission. She has fallen about 3 days ago claiming that her right knee buckled but no associated syncope. Denies any chest pain, DUNN, SOA. Denies any palpitations. She has poor recollection of what happened to her yesterday leading to her admission. Consult is for uncontrolled HTN and so far her BP has been labile and awaiting full neurovascular workup. 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) Rheumatologic: No pertinent hx Infectious disease: No pertinent hx ENT: Other (strabismus) Renal/: Other (bladder mass) PAST SURGICAL HISTORY Past Surgical History: Hysterectomy, Other (PCI; renal calculi) FAMILY HISTORY Family History: Stroke (father) SOCIAL HISTORY Smoke: 1 pack per day ALCOHOL: none Drugs: None Lives: with Family CURRENT MEDICATIONS CURRENT MEDICATIONS Current Medications Medications (Trade) Dose Ordered Sig/Ernie Route PRN Reason Start Time Stop Time Status Last Admin Dose Admin Iohexol (Omnipaque 300 Mg/ml) 60 ml 1X ONCE IV 12/02/19 12:30 12/02/19 12:31 DC 12/02/19 12:48 Gabapentin (Neurontin) 300 mg BID PO 12/02/19 21:00 12/02/19 20:16 Pantoprazole Sodium (Protonix) 40 mg BIDAC PO 12/02/19 17:30 12/02/19 17:42 Calcium/Vitamin D (Oscal D 500mg/ 200uts) 1 tab BIDWMEALS PO 12/02/19 17:00 12/02/19 17:42 Vitamin D (Vitamin D3) 500 unit BID PO 12/02/19 21:00 12/02/19 20:16 Atorvastatin Calcium (Lipitor) 80 mg QHS PO 12/02/19 21:00 12/02/19 20:16 Budesonide (Pulmicort) 0.5 mg RTBID NEB 12/02/19 20:00 12/02/19 19:42 Aspirin (Aspirin Chewable) 324 mg DAILY PO 12/02/19 17:00 12/02/19 17:42 Sodium Chloride 1,000 ml @ 80 mls/hr [id number] IV 12/02/19 17:01 12/03/19 05:31 Albuterol/ Ipratropium (Duoneb) 3 ml Q4H NEB 12/02/19 17:15 12/02/19 19:59 DC 12/02/19 19:42 Lorazepam (Ativan) 0.5 mg PRN Q4HRS PRN PO ANXIETY / AGITATION 12/02/19 17:15 12/02/19 20:18 Nicotine (Nicoderm Cq 21mg) 1 patch DAILY ONCE TD 12/02/19 21:00 12/02/19 21:01 DC 12/02/19 21:00 ALLERGIES ALLERGIES: Coded Allergies: amitriptyline (Verified Allergy, Intermediate, 12/16/14) esomeprazole (Verified Allergy, Intermediate, RASH, 12/16/14) ROS Review of System limited, poor recall PHYSICAL EXAM General: Alert, Oriented X3, Cooperative, No acute distress HEENT: Atraumatic, Mucous membr. moist/pink, Other (strabismus) Lungs: Clear to auscultation, Normal air movement Heart: Regular rate (SR), Normal S1, Normal S2, No murmurs Abdomen: Soft, No tenderness Extremities: No cyanosis, No edema Skin: No breakdown, No significant lesion Neuro: Normal speech, Sensation intact Psych/Mental Status: Other (flat affect) MUSCULOSKELETAL: Osteoarthritic changes both hands, Other (right sided weakness) VITALS/I&O VITALS/I&O: Vital Signs Date Time Temp Pulse Resp B/P (MAP) Pulse Ox O2 Delivery O2 Flow Rate FiO2 12/03/19 03:24 97.6 67 16 160/71 (100) 94 Room Air 97.6 I & O 0 12/02/19 12/02/19 12/03/19 15:00 23:00 07:00 Intake Total 200 ml 50 ml Balance 200 ml 50 ml LABS Lab: Laboratory Tests Test 12/02/19 11:40 12/02/19 11:45 12/02/19 18:15 12/03/19 03:21 Urine Collection Type Unknown Urine Color Yellow Urine Clarity Clear Urine pH 7.5 (<5.0-8.0) Urine Specific [place] 1.015 (1.000-1.030) Urine Protein Negative mg/dL (NEG-TRACE) Urine Glucose (UA) Negative mg/dL (NEG) Urine Ketones (Stick) Negative mg/dL (NEG) Urine Blood Negative (NEG) Urine Nitrite Negative (NEG) Urine Bilirubin Negative (NEG) Urine Urobilinogen Dipstick 0.2 mg/dL (0.2 mg/dL) Urine Leukocyte Esterase Small (NEG) Urine RBC Occ /HPF (0-2) Urine WBC 5-10 /HPF (0-4) Urine Squamous Epithelial Cells Few /LPF Urine Amorphous Sediment Present /HPF Urine Bacteria Few /HPF (0-FEW) White Blood Count 5.1 x10^3/uL (4.0-11.0) Red Blood Count 4.74 x10^6/uL (3.50-5.40) Hemoglobin 15.0 g/dL (12.0-15.5) Hematocrit 43.1 % (36.0-47.0) Mean Corpuscular Volume 91 fL (79-100) Mean Corpuscular Hemoglobin 32 pg (25-35) Mean Corpuscular Hemoglobin Concent 35 g/dL (31-37) Red Cell Distribution Width 13.2 % (11.5-14.5) Platelet Count 193 x10^3/uL (140-400) Neutrophils (%) (Auto) 63 % (31-73) Lymphocytes (%) (Auto) 23 % (24-48) L Monocytes (%) (Auto) 9 % (0-9) Eosinophils (%) (Auto) 4 % (0-3) H Basophils (%) (Auto) 1 % (0-3) Neutrophils # (Auto) 3.2 x10^3/uL (1.8-7.7) Lymphocytes # (Auto) 1.2 x10^3/uL (1.0-4.8) Monocytes # (Auto) 0.5 x10^3/uL (0.0-1.1) Eosinophils # (Auto) 0.2 x10^3/uL (0.0-0.7) Basophils # (Auto) 0.0 x10^3/uL (0.0-0.2) Prothrombin Time 13.2 SEC (11.7-14.0) Prothrombin Time INR 1.0 (0.8-1.1) Sodium Level 141 mmol/L (136-145) Potassium Level 4.0 mmol/L (3.5-5.1) Chloride Level 106 mmol/L (98-107) Carbon Dioxide Level 28 mmol/L (21-32) Anion Gap 7 (6-14) Blood Urea Nitrogen 18 mg/dL (7-20) Creatinine 1.2 mg/dL (0.6-1.0) H Estimated GFR (Cockcroft-Gault) 45.1 BUN/Creatinine Ratio 15 (6-20) Glucose Level 104 mg/dL (70-99) H Calcium Level 8.9 mg/dL (8.5-10.1) Total Bilirubin 0.4 mg/dL (0.2-1.0) Aspartate Amino Transferase (AST) 17 U/L (15-37) Alanine Aminotransferase (ALT) 18 U/L (14-59) Alkaline Phosphatase 66 U/L (46-116) Troponin I Quantitative < 0.017 ng/mL (0.000-0.055) < 0.017 ng/mL (0.000-0.055) Total Protein 6.3 g/dL (6.4-8.2) L Albumin 3.1 g/dL (3.4-5.0) L Albumin/Globulin Ratio 1.0 (1.0-1.7) Triglycerides Level 176 mg/dL (0-150) H Cholesterol Level 178 mg/dL (0-200) LDL Cholesterol, Calculated 101 mg/dL (0-100) H VLDL Cholesterol, Calculated 35 mg/dL (0-40) Non-HDL Cholesterol Calculated 136 mg/dL (0-129) H HDL Cholesterol 42 mg/dL (40-60) Cholesterol/HDL Ratio 4.2 Laboratory Tests 12/02/19 11:45 Laboratory Tests 12/02/19 11:45 IMAGES IMAGES IMPRESSION [facility] CTA head: 1. No large vessel intracranial stenosis or occlusion. 2. Mild generalized cerebral volume loss and chronic small right insular/inferior and cerebellar infarcts. CTA neck: 1. Dominant right vertebral artery with diminutive left vertebral artery which is nonopacified from its origin to the level of C3 where it becomes opacified likely from retrograde filling from the basilar artery. This may be acute or chronic. 2. Calcified atherosclerotic plaque at the bilateral common carotid bifurcations resulting in approximately 50% narrowing bilaterally. CT perfusion: No significant mismatch perfusion defect is identified. 11/22/2019 2:28 PM EXAM: MRI BRAIN HISTORY: New onset dysarthria, concern for lacunar stroke, TECHNIQUE: Multiplanar and multisequence MR imaging of the head was performed. COMPARISON: CT head 09/12/2019; MRI brain 04/18/2018 FINDINGS: No abnormal diffusion restriction. Stable generalized cerebral volume loss. Unchanged old right insular/inferior frontal infarct. Tiny old cerebellar infarcts. Minimal scattered punctate cerebral white matter FLAIR hyperintensities. IMPRESSION MRI [facility] 1. No evidence of acute or recent infarct. 2. Stable old right insular/inferior frontal infarct, tiny bilateral cerebellar infarcts, and mild cerebral white matter chronic microvascular ischemic change. 09/13/2019 7:[address] ABD/PELV W CONTRAST [facility] Final Result 1. No bowel obstruction, inflammatory mass, ascites, or free air. Tiny bilateral obstructing renal calculi. No hydronephrosis. 2. Cholelithiasis without evidence of cholecystitis. 3. Persistent marked atherosclerotic calcification of the common iliac arteries with probable moderate to marked stenosis of the left common iliac artery and at least mild stenosis of the right common iliac artery. 4. avascular necrosis of the left femoral head without articular surface collapse. 09/22/2019 9:26 PM ASSESSMENT/PLAN ASSESSMENT/PLAN 1. Possible stroke: neurology consulted. No significant arrhythmias so far. 2. Carotid artery disease: vascular has been consulted 3. HTN: labile 4. HLP 5. Hx of CVA with right sided hemiparesis 6. CAD: past stent, unknown details possibly PCI was 6-7 yrs ago 7. Nontraumatic mechanical fall Recommendations 1. TTEwith bubble study today. [facility] records reviewed 2. Pt is a poor historian and appears to have poor insight of her medical conditions and treatment. She has not seen a ceramic capacitor processor since she moved from [place] in 2013. I talked to her via phone and appears to have poor insight in regards to treatment and follow ups. Pt was noted to have left AMA at [facility] on 11/22/2019 and was not evaluated by psych at that time. It is unclear what other factors played a part leaving as AMA but currently pt is still getting some test done and is hurrying her up to go home per RN and the pt does not want and I discussed the pt status to the and telling me that the pt is wanting to leave AMA. Will have social service see pt for possible family dynamic issue. 3. Agree with ASA and plavix. high dose statin. Continue home lisinopril and will add coreg for GDMT 4. Discussed with spouse the importance of cardiac follow up and may follow up in our office if pt/spouse are willing. AISHA ESTRELLA MD 12/03/19 1906: CARDIAC CONSULT ASSESSMENT/PLAN ASSESSMENT/PLAN Patient seen and examined. Agree with COAL PIPELINE OPERATOR's assessment and plan. 2D echo showed normal LVF and bubble study negative Carotid duplex with bilateral NIKITA noted - treat per vascular surgery Neurology following for CVA BP better controlled since admission CAD status clinically stable Thank you for your consultation OCTAVIO PETERSON APRN Dec 03, 2019 07:27 AISHA ESTRELLA MD Dec 03, 2019 19:06
[2019-12-03] MEDS: CALCIUM CARB/VIT D3 500/200 TABLET. PO SCH ×2 (08:08→17:11)
[2019-12-03] MEDS: PANTOPRAZOLE 40 MG TABLET.DR. PO SCH ×2 (08:08→17:11)
[2019-12-03] MEDS ORDERED: FAMOTIDINE 20 MG TABLET. PO SCH (09:00)
[2019-12-03] MEDS ORDERED: ASPIRIN CHEWABLE 81 MG TABLET. PO SCH (09:00)
[2019-12-03] MEDS ORDERED: MULTIVITAMIN with MINERAL TABLET. PO SCH (09:00)
[2019-12-03] MEDS ORDERED: FLUTICASONE 50MCG/NASAL SPRAY 16GM BOTTLE. NS SCH (09:00)
[2019-12-03] MEDS ORDERED: LISINOPRIL 10 MG TABLET PO SCH (09:00)
[2019-12-03] MEDS ORDERED: NICOTINE 21MG PATCH. TD SCH ×2 (09:00)
--- NOTE | 2019-12-03 10:36 | CARD ---
MR#: [id number] Date of Study: 12/03/2019 Ordering Physician: WAYNE POOL, Referring Physician: WAYNE POOL, Tech: Omaira Childers RDCS APPROVED REPORT EXAM: Two-dimensional and M-mode echocardiogram with Doppler and color Doppler. Other Information Quality : Good INDICATION CVA/TIA Echo Enhancing Agent Agent/Amount Used: Agitated Saline 8mL 2D DIMENSIONS Left Atrium(2D)2.9 (1.6-4.0cm)IVSd1.3 (0.7-1.1cm) Aortic Root(2D)2.7 (2.0-3.7cm)LVDd3.8 (3.9-5.9cm) LVOT Diameter2.0 (1.8-2.4cm)PWd1.2 (0.7-1.1cm) LVDs2.8 (2.5-4.0cm)FS (%) 30.0 % SV32.1 mlLVEF(%)60.0 (>50%) Aortic Valve AoV Peak Julian.156.0cm/sAoV VTI34.8cm AO Peak GR.9.7mmHgLVOT Peak Julian.163.2cm/s AO Mean GR.6mmHgAVA (VMAX)3.18cm2 TAIWO (VTI)3.00cm2 Mitral Valve MV E Brmpvgdm476.0cm/sMV DECEL JAPN302zs MV A Dhqqtudu677.4cm/sE/A Ratio1.1 Tricuspid Valve TR P. Qjokltzp289na/sRAP KSMVHOPO6qlZq TR Peak Gr.26euYrGFCU13eqWo Pulmonary Vein S1 Otsfuaep66.4cm/sD2 Dgcawrcd08.7cm/s LEFT VENTRICLE The left ventricle is normal size. There is mild concentric left ventricular hypertrophy. The left ve ntricular systolic function is normal and the ejection fraction is within normal range. The Ejection Fraction is 60-65%. There is normal LV segmental wall motion. Transmitral Doppler flow pattern is Gra de I-abnormal relaxation pattern. RIGHT VENTRICLE The right ventricle is normal size. The right ventricular systolic function is normal. ATRIA The left atrium size is normal. The right atrium size is normal. The interatrial septum is intact wit h no evidence for an atrial septal defect or patent foramen ovale as noted on 2-D or Doppler imaging. Agitated saline study documented no interatrial shunt. AORTIC VALVE The aortic valve is not well visualized but appears to be functioning normally by Doppler interrogati on. Doppler and Color Flow revealed no significant aortic regurgitation. There is no significant aort ic valvular stenosis. MITRAL VALVE The mitral valve is thickened but opens well. There is no evidence of mitral valve prolapse. There is no mitral valve stenosis. Doppler and Color Flow revealed no mitral valve regurgitation noted. TRICUSPID VALVE The tricuspid valve is normal in structure and function. Doppler and Color Flow revealed physiologica l tricuspid regurgitation. The PA pressure was estimated at 18 mmHg. There is no tricuspid valve sten osis. PULMONIC VALVE The pulmonic valve is not well visualized. Doppler and Color Flow revealed no pulmonic valvular regur gitation. There is no pulmonic valvular stenosis. GREAT VESSELS The aortic root is normal in size. The ascending aorta is not well seen. The IVC is normal in size an d collapses >50% with inspiration. PERICARDIAL EFFUSION There is no evidence of significant pericardial effusion. Critical Notification Critical Value: No <Conclusion> The left ventricular systolic function is normal and the ejection fraction is within normal range. Th e Ejection Fraction is 60-65%. There is normal LV segmental wall motion. The interatrial septum is intact with no evidence for an atrial septal defect or patent foramen ovale as noted on 2-D or Doppler imaging. Agitated saline study documented no interatrial shunt. Signed by : Abelardo Carey, Electronically Approved : 12/03/2019 10:35:42
[2019-12-03] MEDS: ASPIRIN CHEWABLE 81 MG TABLET. PO SCH (10:41)
[2019-12-03] MEDS: CHOLECALCIFEROL (VITAMIN D3) 1,000 UNIT TABLET PO SCH ×2 (10:41→21:00)
[2019-12-03] MEDS: GABAPENTIN 300 MG CAPSULE. PO SCH ×2 (10:41→21:00)
--- NOTE | 2019-12-03 10:44 | NUR ---
This RN administered 0900 medications late due to pt being off unit for tests.
--- NOTE | 2019-12-03 10:49 | RAD ---
BRAIN W/O CONTRAST History:Reason: AMS / Spl. Instructions: / History: Technique: Multiplanar, multi sequential MR imaging was performed of the brain without contrast. Comparison: CT December 02, 2019 Findings: Subtle increased diffusion weighted signal focus within the left basal ganglia (series 4 image 14). There is associated ADC hypointensity. No definite corresponding T2 or FLAIR hyperintensity. No intracranial hemorrhage. No mass effect. No hydrocephalus. Chronic right frontal infarct. Mild foci of FLAIR hyperintensities, most often due to chronic microvascular ischemia. Moderate brain parenchymal volume loss. Chronic right cerebellar lacunar infarct. Imaged orbits are unremarkable. Imaged paranasal sinuses and mastoid air cells are clear. Impression: 1. Subtle signal abnormality within the left basal ganglia, may represent acute to subacute infarct or artifact. Recommend correlation patient's symptoms. If persistent clinical concern, recommend follow-up. 2. 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 3. Moderate brain parenchymal volume loss. Electronically signed by: Geoffrey Grewal DO (12/03/2019 10:46 AM) [id number]
[2019-12-03 11:13] VITALS: BP 165/65
--- NOTE | 2019-12-03 11:23 | PDOC ---
Provider Note Provider Note She is currently off the floor for additional testing, reportedly for a DARRYL and/or an MRI. Dr. Lopez reviewed her CTA neck from November 22, 2019 performed at [facility]. She had significant calcification of her proximal internal carotid arteries, approximately 50% stenosed. Because of the calcification, this may either under represent or over represent her degree of stenosis. Recommend bilateral carotid ultrasound to help clarify flow velocities and degree of stenosis. Justicifation of Admission Dx: Justifications for Admission: Justification of Admission Dx: Yes Stroke - Ischemic: Stroke-Ischemic Altered Mental Status: Altered Mental Status GEOFF STATON [employer] Dec 03, 2019 11:23
--- NOTE | 2019-12-03 11:44 | PDOC ---
[employer] PROGRESS NOTE Chief Complaint Chief Complaint 1. Acute neurological symptoms/ TIA// CVA 2. 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 3. High-grade narrowing of the bilateral proximal internal carotid arteries within the neck. 4. Additional atheromatous disease within the head and neck. 5. Tiny left upper lobe pulmonary nodule. Recommend one-year follow-up if high risk. 6. C7 posterior vertebral body hemangioma. 7. Multifocal carious dentition with periodontal disease, ADVANCED DENTAL DISEASE 8.. Depression. 9. Chronic obstructive pulmonary disease. 10. Gastroesophageal reflux disease. 11. Previous stroke. cerebral Atrophy. No intracranial hemorrhage. Probable old lacunar infarct right lateral basal ganglia. An acute CVA is not identified. by ct head 12/01 12 Hyperlipidemia. 13. Hypertension.UNCONTROLLED 14. Myocardial infarction. REMOTE 15. Chronic back pain. 16. Bulging disk. History of Present Illness History of Present Illness 12/03/2019 Patient seen and examined Chart reviewed Discussed with RN Vitals/I&O Vitals/I&O: Vital Signs Date Time Temp Pulse Resp B/P (MAP) Pulse Ox O2 Delivery O2 Flow Rate FiO2 12/03/19 11:13 99.1 65 16 165/65 (98) 96 Room Air 99.1 I & O 12/02/19 12/02/19 12/03/19 15:00 23:00 07:00 Intake Total 200 ml 50 ml Balance 200 ml 50 ml Physical Exam General: No acute distress Heart: Regular rate Abdomen: Normal bowel sounds, Soft Extremities: No cyanosis Skin: No breakdown Labs Labs: Laboratory Tests Test 12/02/19 11:45 12/02/19 18:15 12/03/19 03:21 White Blood Count 5.1 x10^3/uL (4.0-11.0) Red Blood Count 4.74 x10^6/uL (3.50-5.40) Hemoglobin 15.0 g/dL (12.0-15.5) Hematocrit 43.1 % (36.0-47.0) Mean Corpuscular Volume 91 fL (79-100) Mean Corpuscular Hemoglobin 32 pg (25-35) Mean Corpuscular Hemoglobin Concent 35 g/dL (31-37) Red Cell Distribution Width 13.2 % (11.5-14.5) Platelet Count 193 x10^3/uL (140-400) Neutrophils (%) (Auto) 63 % (31-73) Lymphocytes (%) (Auto) 23 % (24-48) Monocytes (%) (Auto) 9 % (0-9) Eosinophils (%) (Auto) 4 % (0-3) Basophils (%) (Auto) 1 % (0-3) Neutrophils # (Auto) 3.2 x10^3/uL (1.8-7.7) Lymphocytes # (Auto) 1.2 x10^3/uL (1.0-4.8) Monocytes # (Auto) 0.5 x10^3/uL (0.0-1.1) Eosinophils # (Auto) 0.2 x10^3/uL (0.0-0.7) Basophils # (Auto) 0.0 x10^3/uL (0.0-0.2) Prothrombin Time 13.2 SEC (11.7-14.0) Prothromb Time International Ratio 1.0 (0.8-1.1) Sodium Level 141 mmol/L (136-145) Potassium Level 4.0 mmol/L (3.5-5.1) Chloride Level 106 mmol/L (98-107) Carbon Dioxide Level 28 mmol/L (21-32) Anion Gap 7 (6-14) Blood Urea Nitrogen 18 mg/dL (7-20) Creatinine 1.2 mg/dL (0.6-1.0) Estimated GFR (Cockcroft-Gault) 45.1 BUN/Creatinine Ratio 15 (6-20) Glucose Level 104 mg/dL (70-99) Calcium Level 8.9 mg/dL (8.5-10.1) Total Bilirubin 0.4 mg/dL (0.2-1.0) Aspartate Amino Transf (AST/SGOT) 17 U/L (15-37) Alanine Aminotransferase (ALT/SGPT) 18 U/L (14-59) Alkaline Phosphatase 66 U/L (46-116) Troponin I Quantitative < 0.017 ng/mL (0.000-0.055) < 0.017 ng/mL (0.000-0.055) Total Protein 6.3 g/dL (6.4-8.2) Albumin 3.1 g/dL (3.4-5.0) Albumin/Globulin Ratio 1.0 (1.0-1.7) Triglycerides Level 176 mg/dL (0-150) Cholesterol Level 178 mg/dL (0-200) LDL Cholesterol, Calculated 101 mg/dL (0-100) VLDL Cholesterol, Calculated 35 mg/dL (0-40) Non-HDL Cholesterol Calculated 136 mg/dL (0-129) HDL Cholesterol 42 mg/dL (40-60) Cholesterol/HDL Ratio 4.2 Assessment and Plan Assessmemt and Plan Problems Medical Problems: (1) Carotid artery disease Status: Acute (2) Stroke Status: Acute (3) Vertebral artery occlusion Status: Acute 1. Acute neurological symptoms/ TIA// CVA 2. 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 3. High-grade narrowing of the bilateral proximal internal carotid arteries within the neck. 4. Additional atheromatous disease within the head and neck. 5. Tiny left upper lobe pulmonary nodule. Recommend one-year follow-up if high risk. 6. C7 posterior vertebral body hemangioma. 7. Multifocal carious dentition with periodontal disease, ADVANCED DENTAL DISE ASE 8.. Depression. 9. Chronic obstructive pulmonary disease. 10. Gastroesophageal reflux disease. 11. Previous stroke. cerebral Atrophy. No intracranial hemorrhage. Probable old lacunar infarct right lateral basal ganglia. An acute CVA is not identified. by ct head 12/01 12 Hyperlipidemia. 13. Hypertension.UNCONTROLLED 14. Myocardial infarction. REMOTE 15. Chronic back pain. 16. Bulging disk. Plan Cardiology neurology and vascular surgery following neurochecks q 4 hrs tele monitor home meds PT/OT/ST Full code dvt prophylaxis ASA Appreciate subspecialist Comment Review of Relevant I have reviewed the following items darby (where applicable) has been applied. Medications: Current Medications Medications (Trade) Dose Ordered Sig/Ernie Route PRN Reason Start Time Stop Time Status Last Admin Dose Admin Iohexol (Omnipaque 300 Mg/ml) 60 ml 1X ONCE IV 12/02/19 12:30 12/02/19 12:31 DC 12/02/19 12:48 Fluticasone Propionate (Flonase) 1 spray DAILY NS 12/03/19 09:00 12/03/19 10:42 Gabapentin (Neurontin) 300 mg BID PO 12/02/19 21:00 12/03/19 10:41 Lisinopril (Prinivil) 10 mg DAILY PO 12/03/19 09:00 12/03/19 10:42 Pantoprazole Sodium (Protonix) 40 mg BIDAC PO 12/02/19 17:30 12/03/19 08:08 Calcium/Vitamin D (Oscal D 500mg/ 200uts) 1 tab BIDWMEALS PO 12/02/19 17:00 12/03/19 08:08 Vitamin D (Vitamin D3) 500 unit BID PO 12/02/19 21:00 12/03/19 10:41 Multivitamins (Thera M Plus) 1 tab DAILY PO 12/03/19 09:00 12/03/19 10:41 Atorvastatin Calcium (Lipitor) 80 mg QHS PO 12/02/19 21:00 12/02/19 20:16 Famotidine (Pepcid) 20 mg DAILY PO 12/03/19 09:00 12/03/19 10:41 Budesonide (Pulmicort) 0.5 mg RTBID NEB 12/02/19 20:00 12/03/19 07:18 Aspirin (Aspirin Chewable) 324 mg DAILY PO 12/02/19 17:00 12/03/19 10:41 Sodium Chloride 1,000 ml @ 80 mls/hr [id number] IV 12/02/19 17:01 12/03/19 05:31 Albuterol/ Ipratropium (Duoneb) 3 ml Q4H NEB 12/02/19 17:15 12/02/19 19:59 DC 12/02/19 19:42 Lorazepam (Ativan) 0.5 mg PRN Q4HRS PRN PO ANXIETY / AGITATION 12/02/19 17:15 12/02/19 20:18 Albuterol/ Ipratropium (Duoneb) 3 ml RTQID NEB 12/03/19 08:00 12/03/19 11:06 Nicotine (Nicoderm Cq 21mg) 1 patch DAILY ONCE TD 12/02/19 21:00 12/02/19 21:01 DC 12/02/19 21:00 Nicotine (Nicoderm Cq 21mg) 1 patch DAILY TD 12/03/19 09:00 12/03/19 10:42 Justicifation of Admission Dx: Justifications for Admission: Justification of Admission Dx: Yes Stroke - Ischemic: Stroke-Ischemic Altered Mental Status: Altered Mental Status MINGO WILSON III DO Dec 03, 2019 11:44
--- NOTE | 2019-12-03 12:36 | PDOC2 ---
NEUROLOGY CONSULT Date of Admission Date of Admission DATE: 12/03/19 TIME: 12:33 Reason for Consult Reason for Consult: Altered mental status Referring Physician Referring Physician: Dr. Dumont Source Source: Chart review, Patient History of Present Illness History of Present Illness The patient is a 64-year-old right-handed female who was brought in by emergency medical services yesterday, last known normal the night before last. Blood pressure was elevated. Patient did have CT and CT angiogram studies in the emergency department and I ordered a brain MRI for this morning, as reviewed below. Patient says that she has had 4 strokes in the past leaving her with some right leg weakness and a tremor. There is no history of seizure. She did fell and strike her head about 3 days ago. Past Medical History Cardiovascular: HTN, PR, Hyperlipidemia Pulmonary: COPD CENTRAL NERVOUS SYSTEM: CVA GI: GERD, Irritable bowel disease Musculoskeletal: low back pain (2 bulging disks), Other (Right shoulder fracture) Past Surgical History Past Surgical History: Hysterectomy Family History Family History: CAD Social History Social History , smokes a pack of cigarettes per day, no alcohol, retired Current Medications Current Medications Current Medications Iohexol (Omnipaque 300 Mg/ml) 60 ml 1X ONCE IV Last administered on 12/02/19at 12:48; Start 12/02/19 at 12:30; Stop 12/02/19 at 12:31; Status DC Info (CONTRAST GIVEN -- Rx MONITORING) 1 each PRN DAILY PRN MC SEE COMMENTS; Start 12/02/19 at 12:30; Stop 12/04/19 at 12:29 Albuterol Sulfate (Ventolin Neb Soln) 2.5 mg RTQID NEB ; Start 12/02/19 at 16:00; Stop 12/02/19 at 20:05; Status DC Albuterol Sulfate (Ventolin Neb Soln) 2.5 mg PRN Q4HRS PRN INH SOA, WHEEZE; Start 12/02/19 at 15:00 Aspirin (Aspirin Chewable) 81 mg DAILY PO ; Start 12/03/19 at 09:00; Stop 12/02/19 at 17:01; Status DC Fluticasone Propionate (Flonase) 1 spray DAILY NS Last administered on 12/03/19at 10:42; Start 12/03/19 at 09:00 Gabapentin (Neurontin) 300 mg BID PO Last administered on 12/03/19 10:41; Start 12/02/19 at 21:00 Lisinopril (Prinivil) 10 mg DAILY PO Last administered on 12/03/19 10:42; Start 12/03/19 at 09:00 Pantoprazole Sodium (Protonix) 40 mg BIDAC PO Last administered on 12/03/19 08:08; Start 12/02/19 at 17:30 Non-Formulary Medication (Budesonide/ Formoterol Fumarate (Symbicort 160-4.5 Mcg Inhaler)) 2 puff BID IH ; Start 12/02/19 at 21:00; Status UNV Calcium/Vitamin D (Oscal D 500mg/ 200uts) 1 tab BIDWMEALS PO Last administered on 12/03/19 08:08; Start 12/02/19 at 17:00 Vitamin D (Vitamin D3) 500 unit BID PO Last administered on 12/03/19 10:41; Start 12/02/19 at 21:00 Multivitamins (Thera M Plus) 1 tab DAILY PO Last administered on 12/03/19 10:41; Start 12/03/19 at 09:00 Non-Formulary Medication (Ranitidine Hcl ) 1 tab BID PO ; Start 12/02/19 at 21:00; Status UNV Atorvastatin Calcium (Lipitor) 80 mg QHS PO Last administered on 12/02/19 20:16; Start 12/02/19 at 21:00 Famotidine (Pepcid) 20 mg DAILY PO Last administered on 12/03/19 10:41; Start 12/03/19 at 09:00 Budesonide (Pulmicort) 0.5 mg RTBID NEB Last administered on 12/03/19 07:18; Start 12/02/19 at 20:00 Aspirin (Aspirin Chewable) 324 mg DAILY PO Last administered on 12/03/19 10:41; Start 12/02/19 at 17:00 Sodium Chloride (Normal Saline Flush) 3 ml QSHIFT PRN IV AFTER MEDS AND BLOOD DRAWS; Start 12/02/19 at 17:15 Sodium Chloride 1,000 ml @ 80 mls/hr [id number] IV Last administered on 12/03/19 05:31; Start 12/02/19 at 17:01 Ondansetron HCl (Zofran) 4 mg PRN Q4HRS PRN IV NAUSEA/VOMITING; Start 12/02/19 at 17:15 Acetaminophen (Tylenol Supp) 650 mg PRN Q4HRS PRN WA TEMP OVER 100.4F OR MILD PAIN; Start 12/02/19 at 17:15 Albuterol/ Ipratropium (Duoneb) 3 ml Q4H NEB Last administered on 12/02/19at 19:42; Start 12/02/19 at 17:15; Stop 12/02/19 at 19:59; Status DC Guaifenesin (Robitussin) 200 mg PRN Q4HRS PRN PO COUGH; Start 12/02/19 at 17:15 Lorazepam (Ativan) 0.5 mg PRN Q4HRS PRN PO ANXIETY / AGITATION Last administered on 12/02/19at 20:18; Start 12/02/19 at 17:15 Albuterol/ Ipratropium (Duoneb) 3 ml RTQID NEB Last administered on 12/03/19at 11:06; Start 12/03/19 at 08:00 Nicotine (Nicoderm Cq 21mg) 1 patch DAILY ONCE TD Last administered on 12/02/19at 21:00; Start 12/02/19 at 21:00; Stop 12/02/19 at 21:01; Status DC Nicotine (Nicoderm Cq 21mg) 1 patch DAILY TD ; Start 12/03/19 at 09:00; Status UNV Nicotine (Nicoderm Cq 21mg) 1 patch DAILY TD Last administered on 12/03/19at 10:42; Start 12/03/19 at 09:00 Active Scripts Active Reported Pepcid Ac (Famotidine) 10 Mg Tablet 1 Tab PO DAILY 30 Days Pravastatin Sodium 40 Mg Tablet 1 Tab PO QHS Neurontin (Gabapentin) 400 Mg Capsule 400 Mg PO HS Cetirizine Hcl 10 Mg Tablet 1 Tab PO DAILY Aspirin 81 Mg Tab.chew 1 Tab PO DAILY Multivitamins (Multivitamin) 1 Each Tablet 1 Tab PO DAILY Calcium 600 + Vit D Tablet (Calcium Carbonate/Vitamin D3) 1 Each Tablet 1 Each PO BID Crestor (Rosuvastatin Calcium) 20 Mg Tablet 1 Tab PO DAILY Allergies Allergies: Coded Allergies: amitriptyline (Verified Allergy, Intermediate, 12/16/14) esomeprazole (Verified Allergy, Intermediate, RASH, 12/16/14) ROS Review of System Negative for fever, chills, weight loss, shortness of breath, chest pain, indigestion, hematochezia, melena, and dysuria. Full 14-point review of systems is negative. Physical Exam Physical Examination General: Well-developed, well-nourished white female in no acute distress HEENT: Normocephalic andatraumatic. Tympanic membranes clear.Temporal arteriespulsatile and nontender.Fundoscopic exam unremarkable Neck: Supple without bruit, no meningismus Musculoskeletal: Stability:see neurologic. Gait exam:see neurologic. Tone:see neurologic.Strength:see neurologic. Neurological: Mental Status:intact, orientation, memory, attention span/concentration, language, fund of knowledge normal. Cranial Nerves:Pupils equal and reactive to light, extraocular movements areintact, visual [place] are full to confrontation. Facial sensation is normal. There is no facial asymmetry. Vestibulo-ocular reflex is intact. Palate elevates and tongue protrudes in midline. All other cranial related problems are negative except as mentioned before.Reflexes:2+ and symmetric with flexor plantar responses. Motor:5/5 strength with normal tone and bulk. Coordination:Finger-nose finger and [id number] testing are normal. Rapid alternating movements and fine finger movements are intact. Very coarse head tremor. Gait:Normal, including tandem. Sensory:Normal pinprick, vibration, light touch, proprioception. Vitals VITALS Vital Signs Date Time Temp Pulse Resp B/P (MAP) Pulse Ox O2 Delivery O2 Flow Rate FiO2 12/03/19 11:13 99.1 65 16 165/65 (98) 96 Room Air 99.1 Labs Labs Laboratory Tests Test 12/02/19 11:40 12/02/19 11:45 12/02/19 18:15 12/03/19 03:21 Urine Collection Type Unknown Urine Color Yellow Urine Clarity Clear Urine pH 7.5 (<5.0-8.0) Urine Specific [place] 1.015 (1.000-1.030) Urine Protein Negative mg/dL (NEG-TRACE) Urine Glucose (UA) Negative mg/dL (NEG) Urine Ketones (Stick) Negative mg/dL (NEG) Urine Blood Negative (NEG) Urine Nitrite Negative (NEG) Urine Bilirubin Negative (NEG) Urine Urobilinogen Dipstick 0.2 mg/dL (0.2 mg/dL) Urine Leukocyte Esterase Small (NEG) Urine RBC Occ /HPF (0-2) Urine WBC 5-10 /HPF (0-4) Urine Squamous Epithelial Cells Few /LPF Urine Amorphous Sediment Present /HPF Urine Bacteria Few /HPF (0-FEW) White Blood Count 5.1 x10^3/uL (4.0-11.0) Red Blood Count 4.74 x10^6/uL (3.50-5.40) Hemoglobin 15.0 g/dL (12.0-15.5) Hematocrit 43.1 % (36.0-47.0) Mean Corpuscular Volume 91 fL (79-100) Mean Corpuscular Hemoglobin 32 pg (25-35) Mean Corpuscular Hemoglobin Concent 35 g/dL (31-37) Red Cell Distribution Width 13.2 % (11.5-14.5) Platelet Count 193 x10^3/uL (140-400) Neutrophils (%) (Auto) 63 % (31-73) Lymphocytes (%) (Auto) 23 % (24-48) Monocytes (%) (Auto) 9 % (0-9) Eosinophils (%) (Auto) 4 % (0-3) Basophils (%) (Auto) 1 % (0-3) Neutrophils # (Auto) 3.2 x10^3/uL (1.8-7.7) Lymphocytes # (Auto) 1.2 x10^3/uL (1.0-4.8) Monocytes # (Auto) 0.5 x10^3/uL (0.0-1.1) Eosinophils # (Auto) 0.2 x10^3/uL (0.0-0.7) Basophils # (Auto) 0.0 x10^3/uL (0.0-0.2) Prothrombin Time 13.2 SEC (11.7-14.0) Prothromb Time International Ratio 1.0 (0.8-1.1) Sodium Level 141 mmol/L (136-145) Potassium Level 4.0 mmol/L (3.5-5.1) Chloride Level 106 mmol/L (98-107) Carbon Dioxide Level 28 mmol/L (21-32) Anion Gap 7 (6-14) Blood Urea Nitrogen 18 mg/dL (7-20) Creatinine 1.2 mg/dL (0.6-1.0) Estimated GFR (Cockcroft-Gault) 45.1 BUN/Creatinine Ratio 15 (6-20) Glucose Level 104 mg/dL (70-99) Calcium Level 8.9 mg/dL (8.5-10.1) Total Bilirubin 0.4 mg/dL (0.2-1.0) Aspartate Amino Transf (AST/SGOT) 17 U/L (15-37) Alanine Aminotransferase (ALT/SGPT) 18 U/L (14-59) Alkaline Phosphatase 66 U/L (46-116) Troponin I Quantitative < 0.017 ng/mL (0.000-0.055) < 0.017 ng/mL (0.000-0.055) Total Protein 6.3 g/dL (6.4-8.2) Albumin 3.1 g/dL (3.4-5.0) Albumin/Globulin Ratio 1.0 (1.0-1.7) Triglycerides Level 176 mg/dL (0-150) Cholesterol Level 178 mg/dL (0-200) LDL Cholesterol, Calculated 101 mg/dL (0-100) VLDL Cholesterol, Calculated 35 mg/dL (0-40) Non-HDL Cholesterol Calculated 136 mg/dL (0-129) HDL Cholesterol 42 mg/dL (40-60) Cholesterol/HDL Ratio 4.2 Laboratory Tests Test 12/02/19 18:15 12/03/19 03:21 Troponin I Quantitative < 0.017 ng/mL (0.000-0.055) Triglycerides Level 176 mg/dL (0-150) Cholesterol Level 178 mg/dL (0-200) LDL Cholesterol, Calculated 101 mg/dL (0-100) VLDL Cholesterol, Calculated 35 mg/dL (0-40) Non-HDL Cholesterol Calculated 136 mg/dL (0-129) HDL Cholesterol 42 mg/dL (40-60) Cholesterol/HDL Ratio 4.2 Images Images BRAIN W/O CONTRAST History:Reason: AMS / Spl. Instructions: / History: Technique: Multiplanar, multi sequential MR imaging was performed of the brain without contrast. Comparison: CT December 02, 2019 Findings: Subtle increased diffusion weighted signal focus within the left basal ganglia (series 4 image 14). There is associated ADC hypointensity. No definite corresponding T2 or FLAIR hyperintensity. No intracranial hemorrhage. No mass effect. No hydrocephalus. Chronic right frontal infarct. Mild foci of FLAIR hyperintensities, most often due to chronic microvascular ischemia. Moderate brain parenchymal volume loss. Chronic right cerebellar lacunar infarct. Imaged orbits are unremarkable. Imaged paranasal sinuses and mastoid air cells are clear. Impression: 1. Subtle signal abnormality within the left basal ganglia, may represent acute to subacute infarct or artifact. Recommend correlation patient's symptoms. If persistent clinical concern, recommend follow-up. 2. 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 3. Moderate brain parenchymal volume loss. CT ANGIOGRAPHY HEAD AND NECK History:Reason: concern for stroke, EXTREMITY WEAKNESS, RECENT FALL / Spl. Instructions: [id number] / History: Technique: After bolus of intravenous contrast, volumetric CT data acquisition was acquired of the head and neck. Multiplanar reconstruction images to include MIP and 3-D reconstruction images are submitted. Exposure: One or more of the following individualized dose reduction techniques were utilized for this examination: 1. Automated exposure control 2. Adjustment of the mA and/or kV according to patient size 3. Use of iterative reconstruction technique. Comparison: None Any determination of stenosis is based on NASCET criteria. Head CTA: ICA: Bilateral carotid siphon calcifications with mild narrowing. No occlusion. MCA: No stenosis, occlusion or aneurysm. DEBORA: No stenosis, occlusion or aneurysm. WOOL MERCHANT: No stenosis, occlusion or aneurysm. Basilar artery: No stenosis, occlusion or aneurysm. Distal vertebral arteries: No stenosis, occlusion or aneurysm. CT angiogram neck: Aortic arch: Atheromatous plaque within the aortic arch and branch vessels. Common carotid arteries: Mild narrowing of the left common carotid artery origin. Mild atheromatous plaque. Internal carotid arteries: Heavy calcification within the bilateral carotid bifurcations. Severe 70 percent narrowing of the right proximal internal carotid artery due to soft and calcified plaque. Severe 70 percent narrowing of the left proximal internal carotid artery due to calcified plaque. No occlusion. External carotid arteries: Narrowing of the bilateral external carotid artery origins. Vertebral arteries: Occlusion of the left vertebral artery with intermittent reconstitution via collaterals. Retrograde filling of the distal left vertebral artery. 3 mm left upper lobe pulmonary nodule (series 11 image 1). Soft tissues appear normal. Bones: Multilevel cervical spondylosis most prominent C5-C6 and C6-C7. Multilevel neuroforaminal narrowing. No high-grade canal stenosis. C7 posterior vertebral body hemangioma. Multifocal carious dentition with periodontal disease. Impression: 1. 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 2. High-grade narrowing of the bilateral proximal internal carotid arteries within the neck. 3. Additional atheromatous disease within the head and neck. 4. Tiny left upper lobe pulmonary nodule. Recommend one-year follow-up if high risk. CT brain without contrast. HISTORY: Recent fall, extremity weakness, concern for stroke CT scan of brain was done without contrast. Sinuses are clear. A skull fracture is not identified. There is no mass or shift of the midline. There is mild diffuse atrophy. An acute CVA is not identified. Lateral ventricles are normal in size. There is focal decreased density in the lateral basal ganglia on the right an old small lacunar infarct possible. IMPRESSION: 1. Atrophy. 2. No intracranial hemorrhage. 3. Probable old lacunar infarct right lateral basal ganglia. 4. An acute CVA is not identified. Assessment/Plan Assessment/Plan Impression: Possible left basal ganglia infarct, but these were global symptoms more consistent with hypertensive encephalopathy than the very tiny infarct we see on the MRI. Prior strokes leaving her with right leg weakness and what appears to be rubral tremor Bilateral carotid artery disease Recommendations: Vascular surgery consult appreciated, they want to check carotid Doppler studies to see the velocity as the stenosis may be atherosclerotic disease in the carotids without hemodynamic compromise. Failure on aspirin, add clopidogrel, discussed side effects. Dual antiplatelet therapy for about a month or so and then discontinue aspirin Continue statin I stressed smoking cessation Okay for discharge later today if blood pressure remains controlled Follow-up with neurology as needed. Thank you for let me help with the patient's care. CAROL SIMON MD Dec 03, 2019 12:35
--- NOTE | 2019-12-03 12:57 | PDOC2 ---
[facility] [employer]CE BUILDING 12/03/19 1257: CONSULT Date of Consult Date of Consult DATE: 12/03/19 TIME: 12:35 Reason for Consult Reason for Consult: Carotid stenosis with hx/o stroke Referring Physician Referring Physician: Dr. Cui Identification/Chief Complaint Chief Complaint Generalized weakness Source Source: Patient History of Present Illness Reason for Visit: 64 year old female last seen well right before bed night before last. noticed when she got up yesterday morning to make breakfast she was not acting right, was speaking abnormally. He noted she was generally weak. When visiting with the patient today during consultation, she stated that when she woke up yesterday morning, she was okay. Then, she felt like a "rag doll". She says she "could not hold herself up". 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 That is why she came to the emergency room. She was recently seen at the [facility] for a small right frontal infarct. From [facility] 11/22/2019 DC summary Christa Villalobos is a 64 y.o. female with hyperlipidemia and coronary artery disease s/p angioplasty along with a history of prior TIA and right insular/inferior frontal infarct who was brought to the emergency department via EMS with dysarthria and right sided weakness concerning for stroke. Initial NIH was 5 with a functional overlay, particularly during examination of strength on her right side. Imaging was notable for no acute intracranial process or large vessel occlusion. Patient was admitted for a stroke/TIA work up. On arrival to the floor, she felt that her symptoms had improved. She was experiencing some back pain and she had a headache. She requested to discharge home. Met with patient at bedside and discussed patient concerns. Offered medications and other interventions to help with discomfort. Patient was adamant about discharging home. Reviewed plan for hospital stay including additional labs and imaging studies involved in stroke work-up. Provided reassurance that this is not expected to be a prolonged hospitalization. Also educated patient on risks of discharging home without work-up to allow for risk factor modification including risk of severe stroke leaving patient unable to talk or move or even . Patient was able to reiterate the proposed plan as well as the risks associated with leaving. Patient repeatedly said that she shares the same beliefs of her father that "when it's my time, it's my time." Patient was felt to have decision making capacity given what she was able to articulate. She was given AMA paperwork, which she signed, and she received a ride back to the hotel she is living at with her . Dr. Lopez was able to review the CTA neck that she had done at on November [id number]. She had bilateral approximately 50% carotid stenosis but had significant calcifications making it difficult to determine whether the degree of stenosis was actually greater than or less than reported. Her MRI Head today showed Impression: 1. Subtle signal abnormality within the left basal ganglia, may represent acute to subacute infarct or artifact. Recommend correlation patient's symptoms. If persistent clinical concern, recommend follow-up. 2. 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 3. Moderate brain parenchymal volume loss. She is examined in bed today. She has just returned from using the bathroom. She denies current symptoms of illness. She denies fever and chills, nausea and vomiting, diarrhea and constipation. She denies chest pain and shortness of breath. She has chronic tremors from previous stroke. She denies any transient numbness, weakness or clumsiness of a hand, arm or leg. She denies any episodes of garbled speech, facial drooping or amaurosis. She denies any new or different abdomen, back or groin pain. She denies abdominal pain associated with eating. She denies dysuria and hematuria. She denies melena or hematochezia. She denies buttock, thigh or calf cramping when she walks. She actually uses a wheelchair due to her chronic tremors. She can walk short distances but is too unsteady to walk further. She says she has had 3 small heart attacks and has had coronary stent placement. She states that cardiology told her that if her heart disease worsened, she would need open heart surgery. She does not have a pacemaker nor does she have an AICD. She is not diabetic. She continues to smoke 1-1/2 packs/day but says she is "slowing down". She takes aspirin and Lipitor daily. Her lab work is stable. Her most recent creatinine is 1.2. Past Medical History Cardiovascular: CAD, HTN, Hyperlipidemia, Other (PAD) Pulmonary: COPD CENTRAL NERVOUS SYSTEM: CVA, Other (right side hemiparesis) Hepatobiliary: Cholelithiasis Musculoskeletal: low back pain, Osteoarthritis ENT: Other (strabismus) Renal/: Other (bladder mass) Past Surgical History Past Surgical History: Hysterectomy, Other (PCI; renal calculi) Family History Family History: Stroke (father) Social History 1 pack per day ALCOHOL: none Drugs: None Lives: with Family Current Problem List Problem List Problems Medical Problems: (1) Carotid artery disease Status: Acute (2) Stroke Status: Acute (3) Vertebral artery occlusion Status: Acute Current Medications Current Medications Current Medications Iohexol (Omnipaque 300 Mg/ml) 60 ml 1X ONCE IV Last administered on 12/02/19at 12:48; Start 12/02/19 at 12:30; Stop 12/02/19 at 12:31; Status DC Info (CONTRAST GIVEN -- Rx MONITORING) 1 each PRN DAILY PRN MC SEE COMMENTS; Start 12/02/19 at 12:30; Stop 12/04/19 at 12:29 Albuterol Sulfate (Ventolin Neb Soln) 2.5 mg RTQID NEB ; Start 12/02/19 at 16:00; Stop 12/02/19 at 20:05; Status DC Albuterol Sulfate (Ventolin Neb Soln) 2.5 mg PRN Q4HRS PRN INH SOA, WHEEZE; Start 12/02/19 at 15:00 Aspirin (Aspirin Chewable) 81 mg DAILY PO ; Start 12/03/19 at 09:00; Stop 12/02/19 at 17:01; Status DC Fluticasone Propionate (Flonase) 1 spray DAILY NS Last administered on 12/03/19at 10:42; Start 12/03/19 at 09:00 Gabapentin (Neurontin) 300 mg BID PO Last administered on 12/03/19at 10:41; Start 12/02/19 at 21:00 Lisinopril (Prinivil) 10 mg DAILY PO Last administered on 12/03/19at 10:42; Start 12/03/19 at 09:00 Pantoprazole Sodium (Protonix) 40 mg BIDAC PO Last administered on 12/03/19at 08:08; Start 12/02/19 at 17:30 Non-Formulary Medication (Budesonide/ Formoterol Fumarate (Symbicort 160-4.5 Mcg Inhaler)) 2 puff BID IH ; Start 12/02/19 at 21:00; Status UNV Calcium/Vitamin D (Oscal D 500mg/ 200uts) 1 tab BIDWMEALS PO Last administered on 12/03/19 08:08; Start 12/02/19 at 17:00 Vitamin D (Vitamin D3) 500 unit BID PO Last administered on 12/03/19 10:41; Start 12/02/19 at 21:00 Multivitamins (Thera M Plus) 1 tab DAILY PO Last administered on 12/03/19 10:41; Start 12/03/19 at 09:00 Non-Formulary Medication (Ranitidine Hcl ) 1 tab BID PO ; Start 12/02/19 at 21:00; Status UNV Atorvastatin Calcium (Lipitor) 80 mg QHS PO Last administered on 12/02/19 20:16; Start 12/02/19 at 21:00 Famotidine (Pepcid) 20 mg DAILY PO Last administered on 12/03/19 10:41; Start 12/03/19 at 09:00 Budesonide (Pulmicort) 0.5 mg RTBID NEB Last administered on 12/03/19 07:18; Start 12/02/19 at 20:00 Aspirin (Aspirin Chewable) 324 mg DAILY PO Last administered on 12/03/19 10:41; Start 12/02/19 at 17:00 Sodium Chloride (Normal Saline Flush) 3 ml QSHIFT PRN IV AFTER MEDS AND BLOOD DRAWS; Start 12/02/19 at 17:15 Sodium Chloride 1,000 ml @ 80 mls/hr [id number] IV Last administered on 12/03/19at 05:31; Start 12/02/19 at 17:01 Ondansetron HCl (Zofran) 4 mg PRN Q4HRS PRN IV NAUSEA/VOMITING; Start 12/02/19 at 17:15 Acetaminophen (Tylenol Supp) 650 mg PRN Q4HRS PRN [place] TEMP OVER 100.4F OR MILD PAIN; Start 12/02/19 at 17:15 Albuterol/ Ipratropium (Duoneb) 3 ml Q4H NEB Last administered on 12/02/19 19:42; Start 12/02/19 at 17:15; Stop 12/02/19 at 19:59; Status DC Guaifenesin (Robitussin) 200 mg PRN Q4HRS PRN PO COUGH; Start 12/02/19 at 17:15 Lorazepam (Ativan) 0.5 mg PRN Q4HRS PRN PO ANXIETY / AGITATION Last administered on 12/02/19at 20:18; Start 12/02/19 at 17:15 Albuterol/ Ipratropium (Duoneb) 3 ml RTQID NEB Last administered on 12/03/19at 11:06; Start 12/03/19 at 08:00 Nicotine (Nicoderm Cq 21mg) 1 patch DAILY ONCE TD Last administered on 12/02/19at 21:00; Start 12/02/19 at 21:00; Stop 12/02/19 at 21:01; Status DC Nicotine (Nicoderm Cq 21mg) 1 patch DAILY TD ; Start 12/03/19 at 09:00; Status UNV Nicotine (Nicoderm Cq 21mg) 1 patch DAILY TD Last administered on 12/03/19at 10:42; Start 12/03/19 at 09:00 Active Scripts Active Reported Pepcid Ac (Famotidine) 10 Mg Tablet 1 Tab PO DAILY 30 Days Pravastatin Sodium 40 Mg Tablet 1 Tab PO QHS Neurontin (Gabapentin) 400 Mg Capsule 400 Mg PO HS Cetirizine Hcl 10 Mg Tablet 1 Tab PO DAILY Aspirin 81 Mg Tab.chew 1 Tab PO DAILY Multivitamins (Multivitamin) 1 Each Tablet 1 Tab PO DAILY Calcium 600 + Vit D Tablet (Calcium Carbonate/Vitamin D3) 1 Each Tablet 1 Each PO BID Crestor (Rosuvastatin Calcium) 20 Mg Tablet 1 Tab PO DAILY Allergies Allergies: Coded Allergies: amitriptyline (Verified Allergy, Intermediate, 12/16/14) esomeprazole (Verified Allergy, Intermediate, RASH, 12/16/14) ROS Review of System A 10 point review of systems is negative except for what is listed in her HPI. Physical Exam Physical Exam Vital signs stable. No acute distress. General: Alert, Cooperative, No acute distress HEENT: Atraumatic, Other (She has bilateral carotid bruits. She has 2+ carotid pulses. 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 Her speech is tremulous. Her head and hands are tremulous. Her face/smile is symmetrical and her tongue protrudes midline.) Psych/Mental Status: Mental status NL, Mood NL MUSCULOSKELETAL: No deformity, No swelling Vitals VITALS Vital Signs Date Time Temp Pulse Resp B/P (MAP) Pulse Ox O2 Delivery O2 Flow Rate FiO2 12/03/19 11:13 99.1 65 16 165/65 (98) 96 Room Air 99.1 Labs Labs Laboratory Tests Test 12/02/19 11:40 12/02/19 11:45 12/02/19 18:15 12/03/19 03:21 Urine Collection Type Unknown Urine Color Yellow Urine Clarity Clear Urine pH 7.5 (<5.0-8.0) Urine Specific [place] 1.015 (1.000-1.030) Urine Protein Negative mg/dL (NEG-TRACE) Urine Glucose (UA) Negative mg/dL (NEG) Urine Ketones (Stick) Negative mg/dL (NEG) Urine Blood Negative (NEG) Urine Nitrite Negative (NEG) Urine Bilirubin Negative (NEG) Urine Urobilinogen Dipstick 0.2 mg/dL (0.2 mg/dL) Urine Leukocyte Esterase Small (NEG) Urine RBC Occ /HPF (0-2) Urine WBC 5-10 /HPF (0-4) Urine Squamous Epithelial Cells Few /LPF Urine Amorphous Sediment Present /HPF Urine Bacteria Few /HPF (0-FEW) White Blood Count 5.1 x10^3/uL (4.0-11.0) Red Blood Count 4.74 x10^6/uL (3.50-5.40) Hemoglobin 15.0 g/dL (12.0-15.5) Hematocrit 43.1 % (36.0-47.0) Mean Corpuscular Volume 91 fL (79-100) Mean Corpuscular Hemoglobin 32 pg (25-35) Mean Corpuscular Hemoglobin Concent 35 g/dL (31-37) Red Cell Distribution Width 13.2 % (11.5-14.5) Platelet Count 193 x10^3/uL (140-400) Neutrophils (%) (Auto) 63 % (31-73) Lymphocytes (%) (Auto) 23 % (24-48) Monocytes (%) (Auto) 9 % (0-9) Eosinophils (%) (Auto) 4 % (0-3) Basophils (%) (Auto) 1 % (0-3) Neutrophils # (Auto) 3.2 x10^3/uL (1.8-7.7) Lymphocytes # (Auto) 1.2 x10^3/uL (1.0-4.8) Monocytes # (Auto) 0.5 x10^3/uL (0.0-1.1) Eosinophils # (Auto) 0.2 x10^3/uL (0.0-0.7) Basophils # (Auto) 0.0 x10^3/uL (0.0-0.2) Prothrombin Time 13.2 SEC (11.7-14.0) Prothromb Time International Ratio 1.0 (0.8-1.1) Sodium Level 141 mmol/L (136-145) Potassium Level 4.0 mmol/L (3.5-5.1) Chloride Level 106 mmol/L (98-107) Carbon Dioxide Level 28 mmol/L (21-32) Anion Gap 7 (6-14) Blood Urea Nitrogen 18 mg/dL (7-20) Creatinine 1.2 mg/dL (0.6-1.0) Estimated GFR (Cockcroft-Gault) 45.1 BUN/Creatinine Ratio 15 (6-20) Glucose Level 104 mg/dL (70-99) Calcium Level 8.9 mg/dL (8.5-10.1) Total Bilirubin 0.4 mg/dL (0.2-1.0) Aspartate Amino Transf (AST/SGOT) 17 U/L (15-37) Alanine Aminotransferase (ALT/SGPT) 18 U/L (14-59) Alkaline Phosphatase 66 U/L (46-116) Troponin I Quantitative < 0.017 ng/mL (0.000-0.055) < 0.017 ng/mL (0.000-0.055) Total Protein 6.3 g/dL (6.4-8.2) Albumin 3.1 g/dL (3.4-5.0) Albumin/Globulin Ratio 1.0 (1.0-1.7) Triglycerides Level 176 mg/dL (0-150) Cholesterol Level 178 mg/dL (0-200) LDL Cholesterol, Calculated 101 mg/dL (0-100) VLDL Cholesterol, Calculated 35 mg/dL (0-40) Non-HDL Cholesterol Calculated 136 mg/dL (0-129) HDL Cholesterol 42 mg/dL (40-60) Cholesterol/HDL Ratio 4.2 Laboratory Tests Test 12/02/19 18:15 12/03/19 03:21 Troponin I Quantitative < 0.017 ng/mL (0.000-0.055) Triglycerides Level 176 mg/dL (0-150) Cholesterol Level 178 mg/dL (0-200) LDL Cholesterol, Calculated 101 mg/dL (0-100) VLDL Cholesterol, Calculated 35 mg/dL (0-40) Non-HDL Cholesterol Calculated 136 mg/dL (0-129) HDL Cholesterol 42 mg/dL (40-60) Cholesterol/HDL Ratio 4.2 Assessment/Plan Assessment/Plan 64-year-old female with a past medical history of stroke and coronary artery disease. She was a recent inpatient at the [facility] where she left [facility]. 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 She has had CTA of her head, neck and an MRI of her brain. Dr. Lopez reviewed a CTA neck that was performed on November 21 at . She has moderate bilateral carotid stenosis with calcification making it difficult to tell exactly the degree of stenosis that she has. The CT neck may either underrepresent or over represent her degree of stenosis. She is otherwise doing well and hopes that she can go home soon. I encouraged her to at least wait until we could obtain a carotid duplex scan to get more information about the degree of stenosis in her carotid arteries. Plan: Continue aspirin and atorvastatin daily. She may benefit from the addition of clopidogrel but will defer to Dr. Cheung for this treatment. We will follow-up after we see the results of her carotid duplex scan. Recommended complete smoking cessation. She is not sure she can do that. Recommendations for vascular surgery will depend on the results of her carotid duplex scan. PEPE BRUSH DO 12/03/19 1422: CONSULT Date of Consult Date of Consult 12/03/2019 2:20 PM Assessment/Plan Assessment/Plan Attestation: 12/03/2019 2:20 PM Patient was seen and examined with the nurse practitioner and I agree with the above documented findings. I agree with the initiation of Plavix therapy. Patient should also be on statin therapy. Patient should receive cardiac clearance for major vascular surgery. I do believe that she would benefit from a left carotid endarterectomy given her right lower extremity symptoms. I did review her CT angiogram testing. We will obtain carotid duplex to obtain velocities for comparison. Patient can discharge home from our standpoint. We will arrange outpatient surgery for left carotid endarterectomy. I did describe the procedure at length to the patient and all risks, benefits, and alternatives were discussed. The patient is agreeable with this plan and wishes to proceed. She understands that if she continues to smoke, she is at markedly increased risk of stroke, heart attack, limb loss, and . Pepe Brush DO, FACS, RPVI GEOFF STATON APRN Dec 03, 2019 12:57 PEPE BRUSH DO Dec 03, 2019 14:22
[2019-12-03] MEDS ORDERED: IBUPROFEN 200 MG TABLET. PO PRN (13:00)
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
[2019-12-03 15:11] VITALS: BP 131/87
[2019-12-03] MEDS: CARVEDILOL 3.125 MG TABLET. PO SCH ×2 (15:27→17:12)
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
--- NOTE | 2019-12-03 18:04 | NUR ---
This RN spoke with pt again in regards to home situation. Pt states she feels safe at home with her . This RN further discussed with pt that it is completely her choice if she chooses to sign out AMA. However, this RN reviewed again with pt potential risks versus benefits of signing out without being medically cleared to do so. Pt verbalizes understanding. Pt is agreeable to stay. Will continue monitoring pt. Addendum: 12/03/19 at 1817 by BRIANNE MA RN Cont. from previous: Pt made aware by this RN that if she chooses to leave AMA, she will be held responsible for hospital bill and insurance will not cover it. Pt verbalizes understanding.
[2019-12-03 19:00] VITALS: BP 141/61
[2019-12-03] MEDS: ATORVASTATIN CALCIUM 40 MG TABLET. PO SCH (21:00)
--- NOTE | 2019-12-03 22:48 | RAD ---
Carotid doppler ultrasound History: Bilateral carotid stenosis, heavy calcification on CT Multiple grayscale, color, and duplex spectral analysis waveform sonographic images were acquired of the carotid, subclavian, and vertebral arteries. Comparison: December 02, 2019 CTA HEAD NECK Findings: RIGHT: PSV cm/sec EDV cm/sec Common carotid artery 56 22 Maximal internal carotid artery 148 48 External carotid artery 130 Vertebral artery 88 ICA/CCA ratio 2.6 LEFT: PSV cm/sec EDV cm/sec Common carotid artery 74 30 Maximum internal carotid artery 154 50 External carotid artery 158 Vertebral artery not seen ICA/CCA ratio 2.1 Velocities used to determine stenosis are known to correlate with NASCET angiographic criteria. There is antegrade flow in the right vertebral artery, left vertebral artery not seen. There is prominent hyperechoic calcified plaque of the carotid bulbs bilaterally. Impression: 1. There is prominent calcified plaque of the bilateral carotid bulbs. Velocities of the internal carotid arteries bilaterally may be seen with 50-69% luminal diameter reduction. Left vertebral artery is not visualized by ultrasound. Electronically signed by: Demario Plasencia MD (12/03/2019 10:45 PM) [facility]
--- NOTE | 2019-12-03 23:51 | NUR ---
PT LEAVES AMA. IV PULLED AT APROX 2100. PRIVATE CAB DOESN'T SHOW. [facility] CALLED AND STILL WAITING AT THIS TIME
[2019-12-04] MEDS ORDERED: CLOPIDOGREL BISULFATE 75 MG TABLET PO SCH (08:00)
[2019-12-04] MEDS ORDERED: ASPIRIN CHEWABLE 81 MG TABLET. PO SCH (09:00)
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
--- NOTE | 2019-12-04 15:33 | DS ---
DATE OF DISCHARGE: 12/04/2019 ADMISSION DIAGNOSIS: Stroke symptoms. DISCHARGE DIAGNOSIS: Possible left basal ganglia stroke. CONSULTS: Dr. Cheung and Vascular Surgery. PROCEDURES: None. HOSPITAL COURSE: The patient is a pleasant middle-aged female who presented with stroke symptoms. She had altered mental status and had some weakness. She was admitted. The above consults were obtained. Dr. Cheung thought she probably had a basal ganglia stroke. We were still in the middle of our workup including carotid Dopplers, but the patient insisted that she wanted to go home. She did not want a carotid Doppler. She actually signed out against medical advice. DISPOSITION: Home. ACTIVITY: As tolerated. DIET: Low sodium. MEDICATIONS: Please see the MRAD. MINGO WILSON DO DR: ROCIO/rishi JOB#: [id number] / [id number]
== END 2019-12-04 01:00 | disposition left against medical advice (07) | DRG 65 ==
LOC: ER 11:23 → 6 SOUTH 14:40
PROVIDERS: ADMIT Family Medicine; ATTEND Family Medicine
DX: I63.9 Cerebral infarction, unspecified (principal); I69.351 Hemiplegia and hemiparesis following cerebral infarction affecting right dominant side; M87.852 Other osteonecrosis, left femur; E78.5 Hyperlipidemia, unspecified; E78.00 Pure hypercholesterolemia, unspecified; F17.210 Nicotine dependence, cigarettes, uncomplicated; F32.9 Major depressive disorder, single episode, unspecified; G89.29 Other chronic pain; I10 Essential (primary) hypertension; I25.10 Atherosclerotic heart disease of native coronary artery without angina pectoris; D18.09 Hemangioma of other sites; I65.02 Occlusion and stenosis of left vertebral artery; I65.23 Occlusion and stenosis of bilateral carotid arteries; J44.9 Chronic obstructive pulmonary disease, unspecified; K05.6 Periodontal disease, unspecified; K21.9 Gastro-esophageal reflux disease without esophagitis; M47.812 Spondylosis without myelopathy or radiculopathy, cervical region; W18.30XA Fall on same level, unspecified, initial encounter; H50.9 Unspecified strabismus; K58.9 Irritable bowel syndrome, unspecified; K80.20 Calculus of gallbladder without cholecystitis without obstruction; M19.90 Unspecified osteoarthritis, unspecified site; R91.1 Solitary pulmonary nodule; R47.1 Dysarthria and anarthria; N32.9 Bladder disorder, unspecified; R29.705 NIHSS score 5; I25.2 Old myocardial infarction; Z95.5 Presence of coronary angioplasty implant and graft; Z87.442 Personal history of urinary calculi; Z82.49 Family history of ischemic heart disease and other diseases of the circulatory system; Z82.3 Family history of stroke; Z90.710 Acquired absence of both cervix and uterus; Z79.82 Long term (current) use of aspirin; I69.398 Other sequelae of cerebral infarction
CPT/HCPCS: 36415; 70450; 70496; 70498; 70551; 80053; 80061; 81001; 84484; 85025; 85610; 93005; 93306; 93880; 94640; 94760; 99291; J7030; Q9967; 92610-GN; 97535-GO; G0378; J7626

== ENCOUNTER → 2020-01-05 | Outpatient (CLI) | payer MEDICAID, OTHER ==
[~2020-01-05] MED LIST changes: +CETI10TA16 PO; +FAMO10TA26 PO; +GABA-689 PO; +PRAV40TA2 PO; +REGADENOSON 0.4 MG/5 ML DISP.SYRIN. IV ONE
--- NOTE | 2020-01-05 13:46 | RAD ---
MR#: [id number] Date of Study: 01/05/2020 Ordering Physician: AISHA ESTRELLA Referring Physician: FORD BELLO Tech: RT Genia Martinez) (N) APPROVED REPORT Test Type: Pharmacological Stress Nurse/Tech: Alonzo Manriquez RN Test Indications: CAD Cardiac History: Cardiac stent x1, HTN, See EMR. Medications: See EMR. Medical History: Smoker, Stroke, COPD, See EMR. Resting ECG: SR Resting Heart Rate: 60 bpm Resting Blood Pressure: 146/63mmHg Pretest Chest Pain: No chest pain Nurse/Tech Notes Lungs wheezy throughout. Heart tones regular. Consent: The procedure was explained to the patient in lay terms. Informed consent was witnessed. Guille eout was entered into Perfect. History and Stress Test performed by RT Haley MartinezR) (N) Pharm. Details Pharmacologic stress testing was performed using 0.4mg per 5ml of regadenoson given intravenously ove r 7-10 seconds. Stress Symptoms Dyspnea POST EXERCISE Reason for Termination: Infusion complete Max HR: 87 bpm Max Blood Pressure: 153/63mmHg Blood Pressure response to exercise: Normal blood pressure response during stress. Heart Rate response to exercise: WNL Chest Pain: No. Arrhythmia: No. ST Change: No. INTERPRETATION Stress EKG Conclusion: No evidence of stress induced EKG changes. Imaging Protocol IMAGE PROTOCOL: Rest Tc-99m/stress Tc-99m 1 day Rest: Stress: Viability: Radiopharm.Tc99m OibmyqbmtOg30o Sestamibi Aanh81rNn 31mCi Duration 13min. 13min. Img Date 01/05/2020 01/05/2020 Inj-Img [id number]. 60min. Rest Admin Site:IV - Left AntecubitalAdministrator:RT Genia Martinez)(N) Stress Admin Site: IV - Left AntecubitalAdministrator: RT Genia Martinez)(N) STRESS DATA End Diast. Vol.47.0mlLVEDV index BSA31.0ml End Syst. Vol.11.0mlLVESV index BSA7.0ml Myocardial Mass92.0gEject. Xpoxrawi43.0% Stress Scores Regional WT3.00Summed WT17.00 Regional WM0.00Summed WM4.00 The rest and stress images show normal perfusion, normal contraction and thickening. LV Perf. Quant 17 Seg. SSS0.00 17 Seg. SRS0.00 17 Seg. SDS0.00 Stress Defect Extent (% LAD)0.00Rest Defect Extent (% LAD)0.00Rev. Defect Extent (% LAD)0.00 Stress Defect Extent (% LCX) 0.00Rest Defect Extent (% LCX)0.00Rev. Defect Extent (% LCX)0.00 Stress Defect Extent (% RCA)0.00Rest Defect Extent (% RCA)0.00Rev. Defect Extent (% RCA)0.00 Stress Defect Extent (% MIKE)0.00Rest Defect Extent (% MIKE)0.00Rev. Defect Extent (% MIKE)0.00 Other Information Quality:Good Risk Assessment: Low Risk Conclusion 1. No evidence of EKG changes with stress testing. 2. Normal perfusion at stress/rest. 3. Low risk study. 4. EF > 60%. Signed by : Abelardo Carey, Electronically Approved : 01/05/2020 13:46:28
== END | disposition home or self-care (01) ==
LOC: NM 09:11
PROVIDERS: ATTEND Internal Medicine Cardiovascular Disease
DX: Z01.818 Encounter for other preprocedural examination (principal); I25.10 Atherosclerotic heart disease of native coronary artery without angina pectoris; I10 Essential (primary) hypertension; Z95.5 Presence of coronary angioplasty implant and graft
CPT/HCPCS: 78452; 93017; A9500; J2785

== ENCOUNTER 2020-05-08 19:59 | Emergency (ER) | payer OTHER ==
[~2020-05-08] VITALS: Ht 154.9 cm; Wt 65.0 kg
[~2020-05-08 19:59] MED LIST changes: -REGADENOSON 0.4 MG/5 ML DISP.SYRIN. IV ONE
[2020-05-08] MEDS ORDERED: MORPHINE SULFATE 10 MG/ML VIAL. IV ONE ×2 (20:15→21:30)
[2020-05-08 20:29] LABS: BASO % 1 % (0-3); EOS # 0.2 x10^3/uL (0.0-0.7); EOS % 4 % (0-3); HEMATOCRIT 47.5 % (36.0-47.0); HEMOGLOBIN 16.5 g/dL (12.0-15.5); LYMPH # 1.2 x10^3/uL (1.0-4.8); LYMPH % 29 % (24-48); MEAN CORPUSCULAR HEMOGLOBIN 32 pg (25-35); MEAN CORPUSCULAR HGB CONC 35 g/dL (31-37); MEAN CORPUSCULAR VOLUME 92 fL (79-100); MONO # 0.5 x10^3/uL (0.0-1.1); MONO % 13 % (0-9); NEUT # 2.2 x10^3/uL (1.8-7.7); NEUT % 54 % (31-73); PLATELET COUNT 166 x10^3/uL (140-400); RED BLOOD COUNT 5.19 x10^6/uL (3.50-5.40); WHITE BLOOD COUNT 4.1 x10^3/uL (4.0-11.0)
[2020-05-08 20:36] LABS: CALCIUM 9.2 mg/dL (8.5-10.1); GFR 55.6
[2020-05-08 20:42] LABS: ALBUMIN 3.6 g/dL (3.4-5.0); ALBUMIN/GLOBULIN RATIO 1.1 (1.0-1.7); TOTAL BILIRUBIN 0.4 mg/dL (0.2-1.0); TOTAL PROTEIN 6.9 g/dL (6.4-8.2)
--- NOTE | 2020-05-08 20:51 | RAD ---
Exam: Chest one view INDICATION: Fall, pain TECHNIQUE: Frontal view of the chest Comparisons: 10/16/2018 FINDINGS: The cardiomediastinal silhouette and pulmonary vessels are within normal limits. The lung and pleural spaces are clear. IMPRESSION: No acute cardiopulmonary process. Electronically signed by: Agapito Colmenares MD (05/08/2020 8:49 PM) [facility]
--- NOTE | 2020-05-08 20:55 | RAD ---
Study: XR BILATERAL HIP (WITH OR WITHOUT PELVIS) 2 VIEWS_RIGHT Indication: Fall. Pain. Comparison: None available. Findings: No acute fracture fracture seen at the right hip or elsewhere throughout the pelvis however nondispla eron fractures could be occult in the setting of osteopenia. Limited assessment of the sacrum also fro m bowel gas. No hip malalignment. Incompletely assessed degenerative changes at the lower lumbar spine with leftward curvature. Mild hi p arthrosis with maintained joint space height. Sclerotic focus within the trochanteric femur is favored benign and a similar smaller finding was pre sent on the left. Vascular calcifications. Impression: No acute fracture is identified noting diffuse osteopenia which hinders assessment for nondisplaced f ractures. Electronically signed by: DORI ADLER MD (05/08/2020 8:52 PM) [facility]
--- NOTE | 2020-05-08 22:27 | PHYS DOC ---
Past Medical History Past Medical History: COPD, CVA, GERD, High Cholesterol, Hypertension, [place], Other Additional Past Medical Histor: CHRONIC BACK PAIN, BULGING DISCS X 2, CVA X 4, SD X 3 Past Surgical History: Hysterectomy, Other Additional Past Surgical Histo: EYE SURG X2, RIGHT KNEE SURG, CYST REMOVED FROM EAR Smoking Status: Current Every Day Smoker Alcohol Use: None Drug Use: None General Adult EDM: Chief Complaint: MECHANICAL FALL HPI: HPI: Patient is a 64 year old female with history of COPD, hypertension, high cholesterol, [place], who presents to the ED today complaining of moderate pain to the right hip that began after she fell today. Patient denies hitting her head on the ground. States the pain is worse on laying on the right hip. Denies anything relieving the pain. Describes the pain as sharp and constant. Review of Systems: Review of Systems: Constitutional: Denies fever or chills. [] Eyes: Denies change in visual acuity. [] HENT: Denies nasal congestion or sore throat. [] Respiratory: Denies cough or shortness of breath. [] Cardiovascular: Denies chest pain or edema. [] GI: Denies abdominal pain, nausea, vomiting, bloody stools or diarrhea. [] : Denies dysuria. [] Musculoskeletal: Reports right hip pain, denies low back pain Integument: Denies rash. [] Neurologic: Denies headache, focal weakness or sensory changes. [] Psychiatric: Denies depression or anxiety. [] Heart Score: Risk Factors: Risk Factors: DM, Current or recent (<one month) smoker, HTN, HLP, family history of CAD, obesity. Risk Scores: Score 0 - 3: 2.5% MACE over next 6 weeks - Discharge Home Score 4 - 6: 20.3% MACE over next 6 weeks - Admit for Clinical Observation Score 7 - 10: 72.7% MACE over next 6 weeks - Early Invasive Strategies Current Medications: Current Medications Medications (Trade) Dose Ordered Sig/Ernie Start Time Stop Time Status Last Admin Dose Admin Hydromorphone HCl (Dilaudid) 1 mg PRN Q15MIN PRN 05/08/20 22:30 05/09/20 22:29 Morphine Sulfate (Morphine Sulfate) 5 mg 1X ONCE 05/08/20 21:30 05/08/20 21:31 DC 05/08/20 22:08 5 MG Allergies: Allergies: Allergies Coded Allergies Type Severity Reaction Last Updated Verified amitriptyline Allergy Intermediate 12/16/14 Yes esomeprazole Allergy Intermediate RASH 12/16/14 Yes Physical Exam: PE: Constitutional: Well developed, well nourished, no acute distress, non-toxic appearance. [] HENT: Normocephalic, atraumatic, bilateral external ears normal, oropharynx moist, no oral exudates, nose normal. [] Eyes: PERRLA, EOMI, conjunctiva normal, no discharge. [] Neck: Normal range of motion, no tenderness, supple, no stridor. [] Cardiovascular:Heart rate regular rhythm, no murmur [] Lungs & Thorax: Bilateral breath sounds clear to auscultation [] Abdomen: Bowel sounds normal, soft, no tenderness, no masses, no pulsatile masses. [] Skin: Warm, dry, no erythema, no rash. [] Back: No tenderness, no CVA tenderness. [] Extremities: Patient is lying on the left side, her right lower extremity is curled unable to tolerate alignment. Tenderness on palpation of the right hip. Limited range of motion to the right hip and lower extremity due to pain. +2 right pedal pulse. Cap refill less than 2 seconds the right toes. Neurologic: Alert and oriented X 3, normal motor function, normal sensory function, no focal deficits noted. [] Psychologic: Affect normal, judgement normal, mood normal. [] Current Patient Data: Labs: Laboratory Tests Test 05/08/20 20:15 White Blood Count 4.1 x10^3/uL (4.0-11.0) Red Blood Count 5.19 x10^6/uL (3.50-5.40) Hemoglobin 16.5 g/dL (12.0-15.5) H Hematocrit 47.5 % (36.0-47.0) H Mean Corpuscular Volume 92 fL (79-100) Mean Corpuscular Hemoglobin 32 pg (25-35) Mean Corpuscular Hemoglobin Concent 35 g/dL (31-37) Red Cell Distribution Width 14.0 % (11.5-14.5) Platelet Count 166 x10^3/uL (140-400) Neutrophils (%) (Auto) 54 % (31-73) Lymphocytes (%) (Auto) 29 % (24-48) Monocytes (%) (Auto) 13 % (0-9) H Eosinophils (%) (Auto) 4 % (0-3) H Basophils (%) (Auto) 1 % (0-3) Neutrophils # (Auto) 2.2 x10^3/uL (1.8-7.7) Lymphocytes # (Auto) 1.2 x10^3/uL (1.0-4.8) Monocytes # (Auto) 0.5 x10^3/uL (0.0-1.1) Eosinophils # (Auto) 0.2 x10^3/uL (0.0-0.7) Basophils # (Auto) 0.0 x10^3/uL (0.0-0.2) Sodium Level 147 mmol/L (136-145) H Potassium Level 4.0 mmol/L (3.5-5.1) Chloride Level 107 mmol/L (98-107) Carbon Dioxide Level 28 mmol/L (21-32) Anion Gap 12 (6-14) Blood Urea Nitrogen 8 mg/dL (7-20) Creatinine 1.0 mg/dL (0.6-1.0) Estimated GFR (Cockcroft-Gault) 55.6 BUN/Creatinine Ratio 8 (6-20) Glucose Level 96 mg/dL (70-99) Calcium Level 9.2 mg/dL (8.5-10.1) Total Bilirubin 0.4 mg/dL (0.2-1.0) Aspartate Amino Transferase (AST) 19 U/L (15-37) Alanine Aminotransferase (ALT) 18 U/L (14-59) Alkaline Phosphatase 81 U/L (46-116) Total Protein 6.9 g/dL (6.4-8.2) Albumin 3.6 g/dL (3.4-5.0) Albumin/Globulin Ratio 1.1 (1.0-1.7) Laboratory Tests 05/08/20 20:15 Laboratory Tests 05/08/20 20:15 Vital Signs: Vital Signs Date Time Temp Pulse Resp B/P (MAP) Pulse Ox O2 Delivery O2 Flow Rate FiO2 05/08/20 22:04 72 18 98 EKG: EKG: [] Radiology/Procedures: Radiology/Procedures: PROCEDURE: CT LOWER EXTREMITY WO RIGHT Exam: CT right hip without contrast INDICATION: Fall, pain TECHNIQUE: Sequential axial images through the right obtained without IV contrast. Sagittal and coronal reformatted images were reconstructed from the axial data and reviewed. Comparisons: Radiograph same day FINDINGS: Diffuse osteopenia. Right sacroiliac joint, hip joints and pubic symphysis are well-maintained. No displaced fractures identified. Visualized intrapelvic structures are unremarkable. Soft tissues of the right lower extremity are unremarkable. IMPRESSION: No acute fractures identified. If the patient is acutely unable to bear weight MRI to rule out occult hip fracture is recommended. Exposure: One or more of the following in the visualized dose reduction techniques were utilized for this examination: 1. Automated exposure control 2. Adjustment of the MA and/or KV according to patient size 3. Use of iterative of reconstructive technique Electronically signed by: Agapito Long MD (05/08/2020 10:56 PM) [facility] DICTATED and SIGNED BY: AGAPITO LONG MD DATE: 05/08/[id number] 0 []PROCEDURE: HIP RIGHT 2V WITH PELVIS Study: XR BILATERAL HIP (WITH OR WITHOUT PELVIS) 2 VIEWS_RIGHT Indication: Fall. Pain. Comparison: None available. Findings: No acute fracture fracture seen at the right hip or elsewhere throughout the pelvis however nondisplaced fractures could be occult in the setting of osteopenia. Limited assessment of the sacrum also from bowel gas. No hip malalignment. Incompletely assessed degenerative changes at the lower lumbar spine with leftward curvature. Mild hip arthrosis with maintained joint space height. Sclerotic focus within the trochanteric femur is favored benign and a similar smaller finding was present on the left. Vascular calcifications. Impression: No acute fracture is identified noting diffuse osteopenia which hinders assessment for nondisplaced fractures. Electronically signed by: DORI DALER MD (05/08/2020 8:52 PM) [facility] DICTATED and SIGNED BY: DORI ADLER MD DATE: 05/08/[id number] 0 PROCEDURE: CHEST AP ONLY Exam: Chest one view INDICATION: Fall, pain TECHNIQUE: Frontal view of the chest Comparisons: 10/16/2018 FINDINGS: The cardiomediastinal silhouette and pulmonary vessels are within normal limits. The lung and pleural spaces are clear. IMPRESSION: No acute cardiopulmonary process. Electronically signed by: Agapito Long MD (05/08/2020 8:49 PM) [facility] DICTATED and SIGNED BY: AGAPITO LONG MD DATE: 05/08/[id number] 0 PROCEDURE: HIP RIGHT 2V WITH PELVIS Study: XR BILATERAL HIP (WITH OR WITHOUT PELVIS) 2 VIEWS_RIGHT Indication: Fall. Pain. Comparison: None available. Findings: No acute fracture fracture seen at the right hip or elsewhere throughout the pelvis however nondisplaced fractures could be occult in the setting of osteopenia. Limited assessment of the sacrum also from bowel gas. No hip malalignment. Incompletely assessed degenerative changes at the lower lumbar spine with leftward curvature. Mild hip arthrosis with maintained joint space height. Sclerotic focus within the trochanteric femur is favored benign and a similar smaller finding was present on the left. Vascular calcifications. Impression: No acute fracture is identified noting diffuse osteopenia which hinders assessment for nondisplaced fractures. Electronically signed by: DORI ADLER MD (05/08/2020 8:52 PM) [facility] DICTATED and SIGNED BY: DORI ADLER MD DATE: 05/08/[id number] 0 Course & Med Decision Making: Course & Med Decision Making Pertinent Labs and Imaging studies reviewed. (See chart for details) This is a 64-year-old female patient presented to the ED today with right hip pain status post falling. Right hip x-rays interpreted by radiologist were negative for any acute findings. We did a CT of the right hip considering how much pain patient had. CT of the right hip is negative for any acute findings. Patient was discharged home. Follow-up with orthopedic doctorSerina Elliott Disclaimer: Lexi Disclaimer: This electronic medical record was generated, in whole or in part, using a voice recognition dictation system. Departure Departure Impression: Primary Impression: Fall Qualified Codes: W19.XXXA - Unspecified fall, initial encounter Additional Impression: Contusion of right hip Qualified Codes: S70.01XA - Contusion of right hip, initial encounter Disposition: 01 DC HOME SELF CARE/HOMELESS Condition: STABLE Referrals: SANG REY DO (PCP) HELGA GOYAL MD follow up in one week Patient Instructions: Contusion, [id number], Hip Pain Additional Instructions: You were seen for right hip pain after falling, your right hip x-rays as well as a CAT scan of your right hip was negative for any acute findings. Try to ice and elevate the extremity. You can take Tylenol as needed for pain. Follow-up with your own doctor or the orthopedic doctor provided in 1 week if pain continues FAZAL OCHOA APRN May 08, 2020 22:27
--- NOTE | 2020-05-08 22:59 | RAD ---
Exam: CT right hip without contrast INDICATION: Fall, pain TECHNIQUE: Sequential axial images through the right obtained without IV contrast. Sagittal and coron al reformatted images were reconstructed from the axial data and reviewed. Comparisons: Radiograph same day FINDINGS: Diffuse osteopenia. Right sacroiliac joint, hip joints and pubic symphysis are well-maintained. No displaced fractures identified. Visualized intrapelvic structures are unremarkable. Soft tissues of the right lower extremity are unr emarkable. IMPRESSION: No acute fractures identified. If the patient is acutely unable to bear weight MRI to rule out occult hip fracture is recommended. Exposure: One or more of the following in the visualized dose reduction techniques were utilized for this examination: 1. Automated exposure control 2. Adjustment of the MA and/or KV according to patient size 3. Use of iterative of reconstructive technique Electronically signed by: Agapito Colmenares MD (05/08/2020 10:56 PM) [facility]
[2020-05-08] MEDS: HYDROmorphone 2 MG/ML VIAL IV/SQ PRN (23:12)
[2020-05-08 23:39] LABS: BILIRUBIN,URINE NEGATIVE (NEG); CLARITY,URINE CLEAR; COLOR,URINE YELLOW; NITRITE,URINE NEGATIVE (NEG); PH,URINE 7.5 (<5.0-8.0); PROTEIN,URINE NEGATIVE (NEG-TRACE)
[2020-05-08 23:46] LABS: RBC,URINE RARE /HPF (0-2)
[2020-05-08 23:48] LABS: BACTERIA,URINE 0 /HPF (0-FEW); WBC,URINE 0 /HPF (0-4)
[2020-05-09] MEDS: HYDROmorphone 2 MG/ML VIAL IV/SQ PRN (00:10)
[2020-05-09 00:21] VITALS: BP 152/77
== END 2020-05-09 00:22 | disposition home or self-care (01) ==
LOC: ER 19:59
DX: S70.01XA Contusion of right hip, initial encounter (principal); J44.9 Chronic obstructive pulmonary disease, unspecified; K21.9 Gastro-esophageal reflux disease without esophagitis; E78.00 Pure hypercholesterolemia, unspecified; I10 Essential (primary) hypertension; I25.2 Old myocardial infarction; F17.200 Nicotine dependence, unspecified, uncomplicated; G89.29 Other chronic pain; Z86.73 Personal history of transient ischemic attack (TIA), and cerebral infarction without residual deficits; Z90.710 Acquired absence of both cervix and uterus; Z88.8 Allergy status to other drugs, medicaments and biological substances; Z98.890 Other specified postprocedural states; W18.39XA Other fall on same level, initial encounter; Y93.89 Activity, other specified; Y92.89 Other specified places as the place of occurrence of the external cause; Y99.8 Other external cause status
CPT/HCPCS: 36415; 71045; 73502; 73700; 80053; 81001; 85025; 96374; 96375; 96376; 99285; J1170; J2270; P9612

== ENCOUNTER 2021-01-21 18:28 | Emergency (ER) | payer OTHER ==
[~2021-01-21] VITALS: Ht 154.9 cm; Wt 61.0 kg
[~2021-01-21 18:28] MED LIST changes: +LISI10TA16 PO; -LISI10TA2 PO
--- NOTE | 2021-01-21 19:56 | ED.ADGEN ---
Past Medical History Past Medical History: COPD, CVA, GERD, High Cholesterol, Hypertension, [place], Other Additional Past Medical Histor: CHRONIC BACK PAIN, BULGING DISCS X 2, CVA X 4, [place] X 3 Past Surgical History: Hysterectomy, Other Additional Past Surgical Histo: EYE SURG X2, RIGHT KNEE SURG, CYST REMOVED FROM EAR Smoking Status: Current Every Day Smoker Alcohol Use: None Drug Use: None General Adult EDM: Chief Complaint: ABDOMINAL PAIN HPI: HPI: Patient is a 65 year old 65-year-old female coming in for right lower quadrant abdominal pain that started around 4 PM. Patient states the pain comes and goes and is sharp. Is worse with movement and palpation. Has not eaten since the pain started. Denies any nausea or vomiting, had a normal bowel movement earlier today. Denies any change with urination. Denies any abdominal surgical history. Has had her [employer] Covid vaccine. Review of Systems: Review of Systems: All other systems within normal limits except for as noted in the HPI Current Medications: Current Medications Medications (Trade) Dose Ordered Sig/Ernie Start Time Stop Time Status Last Admin Dose Admin Fentanyl Citrate (Fentanyl 2ml Vial) 75 mcg 1X ONCE 01/21/21 20:00 01/21/21 20:18 DC 01/21/21 20:42 75 MCG Info (CONTRAST GIVEN -- Rx MONITORING) 1 each PRN DAILY PRN 01/21/21 21:45 01/22/21 01:31 DC Iohexol (Omnipaque 300 Mg/ml) 60 ml 1X ONCE 01/21/21 22:00 01/21/21 22:01 DC 01/21/21 21:49 60 ML Nicotine (Nicoderm Cq 21mg) 1 patch 1X ONCE 01/21/21 23:00 01/21/21 23:01 DC 01/21/21 23:05 1 PATCH Ondansetron HCl (Zofran) 4 mg 1X ONCE 01/21/21 20:00 01/21/21 20:19 DC 01/21/21 20:42 4 MG Allergies: Allergies: Allergies Coded Allergies Type Severity Reaction Last Updated Verified amitriptyline Allergy Intermediate 12/16/14 Yes esomeprazole Allergy Intermediate RASH 12/16/14 Yes Physical Exam: PE: Constitutional: Well developed, well nourished, no acute distress, non-toxic appearance. [] HENT: Normocephalic, atraumatic, bilateral external ears normal, nose normal. [] Eyes: PERRLA, conjunctiva normal, no discharge. [] Neck: No rigidity, supple, no stridor. [] Cardiovascular: Regular rate and rhythm, brisk cap refill [] Lungs & Thorax: Non labored symmetric respirations, no tachypnea or respiratory distress [] Abdomen: Soft, nondistended, right lower quadrant abdominal pain with guarding. Positive Rovsing sign. Skin: Warm, dry, no erythema, no rash. [] Back: Unremarkable Extremities: No deformities, range of motion grossly intact, no lower extremity edema [] Neurologic: Alert and oriented X 3, no focal deficits noted. [] Psychologic: Affect normal, judgement normal, mood normal. [] Current Patient Data: Labs: Laboratory Tests Test 01/21/21 20:15 01/21/21 22:26 White Blood Count 6.3 x10^3/uL (4.0-11.0) Red Blood Count 5.17 x10^6/uL (3.50-5.40) Hemoglobin 16.2 g/dL (12.0-15.5) H Hematocrit 46.8 % (36.0-47.0) Mean Corpuscular Volume 91 fL (79-100) Mean Corpuscular Hemoglobin 31 pg (25-35) Mean Corpuscular Hemoglobin Concent 35 g/dL (31-37) Red Cell Distribution Width 14.0 % (11.5-14.5) Platelet Count 172 x10^3/uL (140-400) Neutrophils (%) (Auto) 55 % (31-73) Lymphocytes (%) (Auto) 28 % (24-48) Monocytes (%) (Auto) 13 % (0-9) H Eosinophils (%) (Auto) 3 % (0-3) Basophils (%) (Auto) 1 % (0-3) Neutrophils # (Auto) 3.5 x10^3/uL (1.8-7.7) Lymphocytes # (Auto) 1.8 x10^3/uL (1.0-4.8) Monocytes # (Auto) 0.8 x10^3/uL (0.0-1.1) Eosinophils # (Auto) 0.2 x10^3/uL (0.0-0.7) Basophils # (Auto) 0.1 x10^3/uL (0.0-0.2) Sodium Level 143 mmol/L (136-145) Potassium Level 3.9 mmol/L (3.5-5.1) Chloride Level 107 mmol/L (98-107) Carbon Dioxide Level 26 mmol/L (21-32) Anion Gap 10 (6-14) Blood Urea Nitrogen 9 mg/dL (7-20) Creatinine 1.1 mg/dL (0.6-1.0) H Estimated GFR (Cockcroft-Gault) 49.7 BUN/Creatinine Ratio 8 (6-20) Glucose Level 91 mg/dL (70-99) Calcium Level 10.1 mg/dL (8.5-10.1) Total Bilirubin 0.3 mg/dL (0.2-1.0) Aspartate Amino Transferase (AST) 18 U/L (15-37) Alanine Aminotransferase (ALT) 19 U/L (14-59) Alkaline Phosphatase 70 U/L (46-116) Total Protein 6.8 g/dL (6.4-8.2) Albumin 3.4 g/dL (3.4-5.0) Albumin/Globulin Ratio 1.0 (1.0-1.7) Lipase 85 U/L (73-393) Urine Collection Type Unknown Urine Color Yellow Urine Clarity Clear Urine pH 6.0 (<5.0-8.0) Urine Specific [place] >=1.030 (1.000-1.030) Urine Protein Negative mg/dL (NEG-TRACE) Urine Glucose (UA) Negative mg/dL (NEG) Urine Ketones (Stick) Trace mg/dL (NEG) Urine Blood Negative (NEG) Urine Nitrite Negative (NEG) Urine Bilirubin Negative (NEG) Urine Urobilinogen Dipstick 1.0 mg/dL (0.2 mg/dL) Urine Leukocyte Esterase Small (NEG) Urine RBC Rare /HPF (0-2) Urine WBC 5-10 /HPF (0-4) Urine Squamous Epithelial Cells Few /LPF Urine Bacteria Few /HPF (0-FEW) Urine Mucus Mod /LPF Laboratory Tests 01/21/21 20:15 Laboratory Tests 01/21/21 20:15 Vital Signs: Vital Signs Date Time Temp Pulse Resp B/P (MAP) Pulse Ox O2 Delivery O2 Flow Rate FiO2 01/21/21 22:50 74 14 160/84 (109) 94 Room Air 01/21/21 19:43 98.9 98.9 EKG: EKG: [] Heart Score: C/O Chest Pain: No Risk Factors: Risk Factors: DM, Current or recent (<one month) smoker, HTN, HLP, family history of CAD, obesity. Risk Scores: Score 0 - 3: 2.5% MACE over next 6 weeks - Discharge Home Score 4 - 6: 20.3% MACE over next 6 weeks - Admit for Clinical Observation Score 7 - 10: 72.7% MACE over next 6 weeks - Early Invasive Strategies Radiology/Procedures: Radiology/Procedures: [facility] [address] [place] [address] IMAGING REPORT Signed PATIENT: PONCHO VALENZUELA MACCOUNT: [id number] : 1955 LOCATION: ER AGE: 65 SEX: F EXAM STATUS: REG ER ORD. PHYSICIAN: SERGE DING MD REASON: RLQ pain, OMNI 300, 60 ML IV PROCEDURE: CT ABD PELV W/ IV CONTRST ONLY CT abdomen pelvis with contrast dated 01/21/2021. No comparison available. Clinical data indication: Right lower quadrant pain. TECHNIQUE: Contiguous axial imaging of the abdomen pelvis performed after the administration of 60 cc Omnipaque 300. One or more of the following individualized dose reduction techniques were utili zed for this examination: 1. Automated exposure control 2. Adjustment of the mA and/or kV according to patient size 3. Use of iterative reconstruction technique FINDINGS: Limited images of lung bases are clear. Heart size is within normal limits. No pleural or pericardial effusion. Coronary artery calcifications. Liver, spleen, pancreas, adrenal glands unremarkable. There is a 5 mm calcific stone at the midpole right kidney. Punctate calcific stone at the lower pole left kidney. There are calcifications at the left renal hilum that are likely vascular in etiology. No ureteral stone or hydronephrosis. There is a large calcific stone at the gallbladder neck. The gallbladder fundus is relatively collapsed. No adjacent fluid collection. Unopacified GI tract normal in caliber and contour. No focal bowel wall thickening. No inflammatory stranding in the mesentery. No ascites or lymp hadenopathy. The appendix is normal in caliber. The abdominal aorta is normal in caliber. There are diffuse atherosclerotic calcifications. Calcific changes of the bilateral iliac vessels results in mild to moderate multifocal narrowing. Images of pelvis show nondistended urinary bladder. Uterus is surgically absent. No free fluid or pelvic adenopathy. Bone windows show no acute findings. Geographic sclerotic change at the left femoral head consistent with AVN. There is also a nonspecific sclerotic focus at the intertrochanteric right femur. Mild/moderate degenerative change of the bilateral hip joint with spondylotic changes of the lumbar spine. IMPRESSION: 1. Bilateral nephrolithiasis, nonobstructive. 2. Normal appendix. 3. Cholelithiasis. 4. Left femoral head AVN. No evidence of subchondral collapse. Electronically signed by: Ronald Elise MD (01/21/2021 10:23 PM) [facility] DICTATED and SIGNED BY: RONALD ELISE MD DATE: 01/21/21 [id number] 0 [] Course & Med Decision Making: Course & Med Decision Making Pertinent Labs and Imaging studies reviewed. (See chart for details) [] Lexi Disclaimer: Lexi Disclaimer: This electronic medical record was generated, in whole or in part, using a voice recognition dictation system. Departure Departure Impression: Primary Impression: Abdominal pain Disposition: 01 HOME / SELF CARE / HOMELESS Condition: STABLE Referrals: SANG REY DO (PCP) Patient Instructions: Abdominal Pain, Possible Early Appendicitis SERGE DING MD Jan 21, 2021 19:56
[2021-01-21] MEDS ORDERED: fentaNYL PF VIAL 100 MCG/2 ML VIAL IVP ONE (20:00)
[2021-01-21] MEDS ORDERED: ONDANSETRON PF 4 MG/2 ML VIAL. IVP ONE (20:00)
[2021-01-21] MEDS ORDERED: NICOTINE 21MG PATCH. TD SCH (20:15)
[2021-01-21 20:27] LABS: BASO # 0.1 x10^3/uL (0.0-0.2); BASO % 1 % (0-3); EOS # 0.2 x10^3/uL (0.0-0.7); EOS % 3 % (0-3); HEMATOCRIT 46.8 % (36.0-47.0); HEMOGLOBIN 16.2 g/dL (12.0-15.5); LYMPH # 1.8 x10^3/uL (1.0-4.8); LYMPH % 28 % (24-48); MEAN CORPUSCULAR HEMOGLOBIN 31 pg (25-35); MEAN CORPUSCULAR HGB CONC 35 g/dL (31-37); MEAN CORPUSCULAR VOLUME 91 fL (79-100); MONO # 0.8 x10^3/uL (0.0-1.1); MONO % 13 % (0-9); NEUT # 3.5 x10^3/uL (1.8-7.7); NEUT % 55 % (31-73); PLATELET COUNT 172 x10^3/uL (140-400); RED BLOOD COUNT 5.17 x10^6/uL (3.50-5.40); WHITE BLOOD COUNT 6.3 x10^3/uL (4.0-11.0)
[2021-01-21 20:40] LABS: CALCIUM 10.1 mg/dL (8.5-10.1); CREATININE 1.1 mg/dL (0.6-1.0); GFR 49.7; POTASSIUM 3.9 mmol/L (3.5-5.1)
[2021-01-21 20:46] LABS: ALBUMIN 3.4 g/dL (3.4-5.0); TOTAL BILIRUBIN 0.3 mg/dL (0.2-1.0); TOTAL PROTEIN 6.8 g/dL (6.4-8.2)
[2021-01-21] MEDS ORDERED: CONTRAST GIVEN. MC PRN (21:45)
[2021-01-21] MEDS ORDERED: IOHEXOL 300 MG/ML 100ML VIAL. IV ONE (22:00)
--- NOTE | 2021-01-21 22:26 | RAD ---
CT abdomen pelvis with contrast dated 01/21/2021. No comparison available. Clinical data indication: Right lower quadrant pain. TECHNIQUE: Contiguous axial imaging of the abdomen pelvis performed after the administration of 60 cc Omnipaque 300. One or more of the following individualized dose reduction techniques were utilized for this examinat ion: 1. Automated exposure control 2. Adjustment of the mA and/or kV according to patient size 3. Use of iterative reconstruction technique FINDINGS: Limited images of lung bases are clear. Heart size is within normal limits. No pleural or pericardial effusion. Coronary artery calcifications. Liver, spleen, pancreas, adrenal glands unremarkable. There is a 5 mm calcific stone at the midpole r ight kidney. Punctate calcific stone at the lower pole left kidney. There are calcifications at the l eft renal hilum that are likely vascular in etiology. No ureteral stone or hydronephrosis. There is a large calcific stone at the gallbladder neck. The gallbladder fundus is relatively collaps ed. No adjacent fluid collection. Unopacified GI tract normal in caliber and contour. No focal bowel wall thickening. No inflammatory s tranding in the mesentery. No ascites or lymphadenopathy. The appendix is normal in caliber. The abdominal aorta is normal in caliber. There are diffuse atherosclerotic calcifications. Calcific changes of the bilateral iliac vessels results in mild to moderate multifocal narrowing. Images of pelvis show nondistended urinary bladder. Uterus is surgically absent. No free fluid or pel jenniffer adenopathy. Bone windows show no acute findings. Geographic sclerotic change at the left femoral head consistent with AVN. There is also a nonspecific sclerotic focus at the intertrochanteric right femur. Mild/mode rate degenerative change of the bilateral hip joint with spondylotic changes of the lumbar spine. IMPRESSION: 1. Bilateral nephrolithiasis, nonobstructive. 2. Normal appendix. 3. Cholelithiasis. 4. Left femoral head AVN. No evidence of subchondral collapse. Electronically signed by: Ronald Elise MD (01/21/2021 10:23 PM) [facility]
[2021-01-21 22:34] LABS: BILIRUBIN,URINE NEGATIVE (NEG); CLARITY,URINE CLEAR; COLOR,URINE YELLOW; NITRITE,URINE NEGATIVE (NEG); PROTEIN,URINE NEGATIVE (NEG-TRACE)
[2021-01-21 22:39] LABS: BACTERIA,URINE FEW /HPF (0-FEW); RBC,URINE RARE /HPF (0-2)
[2021-01-21] MEDS ORDERED: NICOTINE 21MG PATCH. TD ONE ×2 (22:45→23:00)
[2021-01-21 22:50] VITALS: BP 160/84
== END 2021-01-22 01:30 | disposition home or self-care (01) ==
LOC: ER 18:28
DX: R10.31 Right lower quadrant pain (principal); K80.20 Calculus of gallbladder without cholecystitis without obstruction; N20.0 Calculus of kidney; K21.9 Gastro-esophageal reflux disease without esophagitis; J44.9 Chronic obstructive pulmonary disease, unspecified; E78.00 Pure hypercholesterolemia, unspecified; I10 Essential (primary) hypertension; I25.2 Old myocardial infarction; Z86.73 Personal history of transient ischemic attack (TIA), and cerebral infarction without residual deficits; G89.29 Other chronic pain; Z90.710 Acquired absence of both cervix and uterus; F17.200 Nicotine dependence, unspecified, uncomplicated; Z88.8 Allergy status to other drugs, medicaments and biological substances
CPT/HCPCS: 36415; 74177; 80053; 81001; 83690; 85025; 87086; 96374; 96375; 99285; J2405; J3010; Q9967

== ENCOUNTER 2021-02-13 11:11 | Emergency (ER) | payer OTHER ==
[~2021-02-13] VITALS: Ht 154.9 cm; Wt 61.0 kg
--- NOTE | 2021-02-13 12:05 | PHYS DOC ---
Past Medical History Past Medical History: COPD, CVA, GERD, High Cholesterol, Hypertension, NH, Other Additional Past Medical Histor: CHRONIC BACK PAIN, BULGING DISCS X 2, CVA X 4, NH X 3 Past Surgical History: Hysterectomy, Other Additional Past Surgical Histo: EYE SURG X2, RIGHT KNEE SURG, CYST REMOVED FROM EAR Smoking Status: Current Every Day Smoker Alcohol Use: None Drug Use: None General Adult EDM: Chief Complaint: MECHANICAL FALL HPI: HPI: Patient is a 65 year old female who presents with a fall from standing. States that she had a stroke and has residual right-sided deficits and difficulty speaking. She tripped up on her right leg and fell down onto her right hip. Denies head strike. Denies LOC. Denies headache. Does have some mild neck discomfort. No numbness or tingling in the upper extremities. No new weakness. Her primary complaint is of right hip pain. She has been nonambulatory since the fall. Review of Systems: Review of Systems: Constitutional: Denies fever or chills. [] Eyes: Denies change in visual acuity. [] HENT: Denies nasal congestion or sore throat. [] Respiratory: Denies cough or shortness of breath. [] Cardiovascular: Denies chest pain or edema. [] GI: Denies abdominal pain, nausea, vomiting, bloody stools or diarrhea. [] : Denies dysuria. [] Musculoskeletal: Complains of right hip pain Integument: Denies rash. [] Neurologic: Denies headache, focal weakness or sensory changes. [] Endocrine: Denies polyuria or polydipsia. [] Lymphatic: Denies swollen glands. [] Psychiatric: Denies depression or anxiety. [] Heart Score: C/O Chest Pain: No Risk Factors: Risk Factors: DM, Current or recent (<one month) smoker, HTN, HLP, family history of CAD, obesity. Risk Scores: Score 0 - 3: 2.5% MACE over next 6 weeks - Discharge Home Score 4 - 6: 20.3% MACE over next 6 weeks - Admit for Clinical Observation Score 7 - 10: 72.7% MACE over next 6 weeks - Early Invasive Strategies Allergies: Allergies: Allergies Coded Allergies Type Severity Reaction Last Updated Verified amitriptyline Allergy Intermediate 12/16/14 Yes esomeprazole Allergy Intermediate RASH 12/16/14 Yes Physical Exam: PE: Constitutional: Well developed, well nourished, no acute distress, non-toxic appearance. [] HENT: Normocephalic, atraumatic, bilateral external ears normal, oropharynx moist, no oral exudates, nose normal. [] Eyes: PERRLA, EOMI, conjunctiva normal, no discharge. [] Neck: Normal range of motion, no tenderness, supple, no stridor. [] Cardiovascular:Heart rate regular rhythm, no murmur [] Lungs & Thorax: Bilateral breath sounds clear to auscultation [] Abdomen: Bowel sounds normal, soft, no tenderness, no masses, no pulsatile ma sses. [] Skin: Warm, dry, no erythema, no rash. [] Back: No tenderness, no CVA tenderness. [] Extremities: Tenderness over the right greater trochanter. Pain with range of motion of the hip. 2+ DP pulses bilaterally [] Neurologic: Alert and oriented X 3, baseline dysarthria and right-sided wea kness. [] Psychologic: Affect normal, judgement normal, mood normal. [] Current Patient Data: Vital Signs: Vital Signs Date Time Temp Pulse Resp B/P (MAP) Pulse Ox O2 Delivery O2 Flow Rate FiO2 02/13/21 11:28 98.4 84 16 138/65 (89) 96 Room Air 98.4 EKG: EKG: [] Radiology/Procedures: Radiology/Procedures: [][facility] [address] [place] [address] IMAGING REPORT Signed PATIENT: PONCHO VALENZUELA MACCOUNT: [id number] : 1955 LOCATION: ER AGE: 65 SEX: F EXAM STATUS: PRE ER ORD. PHYSICIAN: TAN JOHNSON MD REASON: fall, R hip pain PROCEDURE: HIP RIGHT 2V WITH PELVIS Site ID: [id number] EXAMINATION: XR BILATERAL HIP (WITH OR WITHOUT PELVIS) 2 VIEWS_RIGHT. HISTORY: 65 years Female Reason: fall, R hip pain COMPARISON: May 08, 2020. FINDINGS: No fracture, dislocation or radiopaque foreign body. Mild degenerative changes in the hip joints and SI joints seen. There is scoliosis in the lumbar spine convex to the left. 1 cm bone island is again seen in the right intertroch anteric region. IMPRESSION: No acute process. Electronically signed by: Mark Choi MD (02/13/2021 12:28 PM) [id number] DICTATED and SIGNED BY: MARK CHOI MD DATE: 02/13/21 [id number] [facility] [address] [place] [address] IMAGING REPORT Signed PATIENT: PONCHO VALENZUELA MACCOUNT: [id number] : 1955 LOCATION: ER AGE: 65 SEX: F EXAM STATUS: PRE ER ORD. PHYSICIAN: TAN JOHNSON MD REASON: fall PT. HAS TREMORS PROCEDURE: CT HEAD AND CERVICAL SPINE WO CT HEAD AND C-SPINE WO History: Fall. Tremors. Comparison: 12/02/2019 CT head. Technique: Noncontrast CT of the head and cervical spine. Findings: CT HEAD: There is no evidence for intracranial mass or hemorrhage. There is no hydrocephalus or midline shift. No abnormal extra-axial fluid collections are present. No evidence of acute territorial infarct. Redemonstrated focal hypodensity right basal ganglia consistent with old lacunar infarct. The visualized paranasal sinuses and mastoid air cells are clear. The skull and scalp are within normal limits. CT CERVICAL SPINE: There is no evidence for fracture in the cervical spine. Straightening of the normal cervical lordosis. Disc space narrowing and circumferential osteophytes at C5-C6. No destructive osseous lesions are seen. Incidental azygos fissure. Right carotid bulb calcifications. Left carotid surgical clips. Impression: 1. No acute intracranial findings. 2. No acute osseous abnormality in the cervical spine. ------- Exposure: One or more of the following individualized dose reduction techniques were utilized for this examination: 1. Automated exposure control 2. Adjustment of the mA and/or kV according to patient size 3. Use of iterative reconstruction technique. Electronically signed by: Kanu Castaneda MD (02/13/2021 12:39 PM) [id number] DICTATED and SIGNED BY: KANU CASTANEDA MD DATE: 02/13/21 [id number] 0 [facility] [address] [place] [address] IMAGING REPORT Signed PATIENT: PONCHO VALENZUELAUNT: [id number] : 1955 LOCATION: ER AGE: 65 SEX: F EXAM STATUS: PRE ER ORD. PHYSICIAN: TAN JOHNSON MD REASON: fall, R hip pain, unable to ambulate. Negative plain film. PROCEDURE: CT PELVIS WO CONTRAST CT PELVIS WO History: Fall, right hip pain. Unable to ambulate. Comparison: Hip radiographs 05/08/2020 Technique: Noncontrast CT of the pelvis. Findings: Decreased osseous mineralization. There is no pelvic or hip fracture identified. A benign-appearing right intertrochanteric sclerotic lesion is unchanged from 2020. Mild degenerative changes of the bilateral femoral acetabular joints. The sacroiliac joints and pubic symphysis are unremarkable. Limited visualization demonstrates normal loops of small bowel, a normal appe ndix and unremarkable colon. The bladder is within normal limits. There is atherosclerotic vascular calcifications the aorta and iliac arteries. Impression: 1. No acute osseous abnormality of the pelvis and proximal femora. If there is persistent clinical concern for occult fracture, nuclear medicine bone scan or MRI offer greater sensitivity. ------ Exposure: One or more of the following individualized dose reduction techniques were utilized for this examination: 1. Automated exposure control 2. Adjustment of the mA and/or kV according to patient size 3. Use of iterative reconstruction technique. Electronically signed by: Kanu Castaneda MD (02/13/2021 1:07 PM) [id number] DICTATED and SIGNED BY: KANU CASTANEDA MD DATE: 02/13/21 [id number] 0 Course & Med Decision Making: Course & Med Decision Making Pertinent Labs and Imaging studies reviewed. (See chart for details) Patient is 65-year-old female with history of CVA and residual right-sided deficits and dysarthria who presents after a reported mechanical fall with right hip pain. Will obtain CT head, neck. We will obtain right hip plain film. 1205 Plain film negative. Given inability to ambulate thus far will obtain CT pelvis to ensure no occult fracture. 1236 CT head, c-spine, and pelvis without acute process. She is typically wheelchair bound and was trying to do more than she usual does when she fell today. Feel she can be discharged at this time with negative imaging and stable labs. [address] Disclaimer: Lexi Disclaimer: This electronic medical record was generated, in whole or in part, using a voice recognition dictation system. Departure Departure Impression: Primary Impression: Right hip pain Additional Impression: Fall Disposition: HOME / SELF CARE / HOMELESS Condition: STABLE Referrals: SANG REY DO (PCP) Additional Instructions: Your CT scans did not show any injuries. There is no evidence of a right hip fracture. You likely bruised her hip causing her pain. Please take Tylenol 1000 mg every 6 hours for pain. Please follow-up with your primary care doctor and discuss other pain control options if your pain persist. TAN JOHNSON MD Feb 13, 2021 12:05
--- NOTE | 2021-02-13 12:31 | RAD ---
Site ID: [id number] EXAMINATION: XR BILATERAL HIP (WITH OR WITHOUT PELVIS) 2 VIEWS_RIGHT. HISTORY: 65 years Female Reason: fall, R hip pain COMPARISON: May 08, 2020. FINDINGS: No fracture, dislocation or radiopaque foreign body. Mild degenerative changes in the hip joints a nd SI joints seen. There is scoliosis in the lumbar spine convex to the left. 1 cm bone island is aga in seen in the right intertrochanteric region. IMPRESSION: No acute process. Electronically signed by: Kvng Choi MD (02/13/2021 12:28 PM) [id number]
--- NOTE | 2021-02-13 12:41 | RAD ---
CT HEAD AND C-SPINE WO History: Fall. Tremors. Comparison: 12/02/2019 CT head. Technique: Noncontrast CT of the head and cervical spine. Findings: CT HEAD: There is no evidence for intracranial mass or hemorrhage. There is no hydrocephalus or midline shift. No abnormal extra-axial fluid collections are present. No evidence of acute territorial infarct. Redemonstrated focal hypodensity right basal ganglia consis tent with old lacunar infarct. The visualized paranasal sinuses and mastoid air cells are clear. The skull and scalp are within normal limits. CT CERVICAL SPINE: There is no evidence for fracture in the cervical spine. Straightening of the normal cervical lordosis. Disc space narrowing and circumferential osteophytes at C5-C6. No destructive osseous lesions are seen. Incidental azygos fissure. Right carotid bulb calcifications. Left carotid surgical clips. Impression: 1. No acute intracranial findings. 2. No acute osseous abnormality in the cervical spine. ------- Exposure: One or more of the following individualized dose reduction techniques were utilized for thi s examination: 1. Automated exposure control 2. Adjustment of the mA and/or kV according to patient size 3. Use of iterative reconstruction technique. Electronically signed by: Kanu Ellsworth MD (02/13/2021 12:39 PM) [id number]
--- NOTE | 2021-02-13 13:10 | RAD ---
CT PELVIS WO History: Fall, right hip pain. Unable to ambulate. Comparison: Hip radiographs 05/08/2020 Technique: Noncontrast CT of the pelvis. Findings: Decreased osseous mineralization. There is no pelvic or hip fracture identified. A benign-appearing r ight intertrochanteric sclerotic lesion is unchanged from 2020. Mild degenerative changes of the bila teral femoral acetabular joints. The sacroiliac joints and pubic symphysis are unremarkable. Limited visualization demonstrates normal loops of small bowel, a normal appendix and unremarkable co sania. The bladder is within normal limits. There is atherosclerotic vascular calcifications the aorta and iliac arteries. Impression: 1. No acute osseous abnormality of the pelvis and proximal femora. If there is persistent clinical c oncern for occult fracture, nuclear medicine bone scan or MRI offer greater sensitivity. ------ Exposure: One or more of the following individualized dose reduction techniques were utilized for thi s examination: 1. Automated exposure control 2. Adjustment of the mA and/or kV according to patient size 3. Use of iterative reconstruction technique. Electronically signed by: Kanu Ellsworth MD (02/13/2021 1:07 PM) [id number]
[2021-02-13] MEDS ORDERED: MORPHINE SULFATE 2 MG/ML INJ. IVP ONE (13:30)
[2021-02-13 13:49] LABS: BASO # 0.1 x10^3/uL (0.0-0.2); BASO % 1 % (0-3); EOS # 0.2 x10^3/uL (0.0-0.7); EOS % 3 % (0-3); HEMATOCRIT 47.7 % (36.0-47.0); HEMOGLOBIN 16.1 g/dL (12.0-15.5); LYMPH # 1.2 x10^3/uL (1.0-4.8); LYMPH % 24 % (24-48); MEAN CORPUSCULAR HEMOGLOBIN 31 pg (25-35); MEAN CORPUSCULAR HGB CONC 34 g/dL (31-37); MEAN CORPUSCULAR VOLUME 93 fL (79-100); MONO # 0.5 x10^3/uL (0.0-1.1); MONO % 10 % (0-9); NEUT # 3.2 x10^3/uL (1.8-7.7); NEUT % 63 % (31-73); PLATELET COUNT 161 x10^3/uL (140-400); RED BLOOD COUNT 5.15 x10^6/uL (3.50-5.40); RED CELL DISTRIBUTION WIDTH 14.4 % (11.5-14.5); WHITE BLOOD COUNT 5.2 x10^3/uL (4.0-11.0)
[2021-02-13 13:56] LABS: CALCIUM 9.3 mg/dL (8.5-10.1); CREATININE 1.1 mg/dL (0.6-1.0); GFR 49.7; POTASSIUM 4.4 mmol/L (3.5-5.1)
[2021-02-13 15:49] VITALS: BP 199/89
== END 2021-02-13 16:00 | disposition home or self-care (01) ==
LOC: ER 11:11
DX: M25.551 Pain in right hip (principal); G89.11 Acute pain due to trauma; J44.9 Chronic obstructive pulmonary disease, unspecified; K21.9 Gastro-esophageal reflux disease without esophagitis; E78.00 Pure hypercholesterolemia, unspecified; I10 Essential (primary) hypertension; Z86.73 Personal history of transient ischemic attack (TIA), and cerebral infarction without residual deficits; I25.2 Old myocardial infarction; G89.29 Other chronic pain; F17.200 Nicotine dependence, unspecified, uncomplicated; Z88.8 Allergy status to other drugs, medicaments and biological substances; W01.0XXA Fall on same level from slipping, tripping and stumbling without subsequent striking against object, initial encounter; Y93.89 Activity, other specified; Y92.89 Other specified places as the place of occurrence of the external cause; Y99.8 Other external cause status
CPT/HCPCS: 36415; 70450; 72125; 72192; 73502; 80048; 85025; 96374; 99285; J2270

== ENCOUNTER 2021-08-07 20:43 | Emergency (ER) | payer OTHER, MEDICAID ==
[~2021-08-07] VITALS: Ht 154.9 cm; Wt 60.0 kg
[~2021-08-07 20:43] MED LIST changes: +CYCL10TA19 PO; -CYCL10TA2 PO
--- NOTE | 2021-08-07 21:15 | PHYS DOC ---
Past Medical History Past Medical History: COPD, CVA, GERD, High Cholesterol, Hypertension, NM, Other Additional Past Medical Histor: CHRONIC BACK PAIN, BULGING DISCS X 2, CVA X 4, NM X 3 Past Surgical History: Hysterectomy, Other Additional Past Surgical Histo: EYE SURG X2, RIGHT KNEE SURG, CYST REMOVED FROM EAR Smoking Status: Current Every Day Smoker Alcohol Use: None Drug Use: None General Adult EDM: Chief Complaint: General Complaint HPI: HPI: 66-year-old female past medical history of CVA with right-sided weakness on Plavix, CAD, COPD, hypertension, lumbar disc herniations and osteoarthritis, presents to the ED brought in by EMS with complaints of right knee pain and right distal thigh pain after patient fell just prior to arrival while trying to get out of her wheelchair, landed on concrete on her right side. Is currently living in a hotel-bystanders helped her up. Did not hit her head or lose consciousness. Denies any alcohol or drug use. States her is admitted here. Denies any associated headache, neck pain, ankle pain, hip pain, saddle anesthesia, incontinence, or skin color changes. Review of Systems: Review of Systems: Constitutional: Denies fever or chills. [] Eyes: Denies change in visual acuity. [] HENT: Denies nasal congestion or sore throat. [] Respiratory: Denies cough or shortness of breath. [] Cardiovascular: Denies chest pain or edema. [] GI: Denies abdominal pain, nausea, vomiting, bloody stools or diarrhea. [] : Denies incontinence or saddle anesthesia Musculoskeletal: Denies back pain or flank pain. [] Integument: Denies rash or diaphoresis Neurologic: Denies headache or neck pain Endocrine: Denies polyuria or polydipsia. [] Lymphatic: Denies swollen glands. [] Psychiatric: Denies depression or anxiety. [] Heart Score: C/O Chest Pain: No Risk Factors: Risk Factors: DM, Current or recent (<one month) smoker, HTN, HLP, family history of CAD, obesity. Risk Scores: Score 0 - 3: 2.5% MACE over next 6 weeks - Discharge Home Score 4 - 6: 20.3% MACE over next 6 weeks - Admit for Clinical Observation Score 7 - 10: 72.7% MACE over next 6 weeks - Early Invasive Strategies Allergies: Allergies: Allergies Coded Allergies Type Severity Reaction Last Updated Verified amitriptyline Allergy Intermediate 12/16/14 Yes esomeprazole Allergy Intermediate RASH 12/16/14 Yes Physical Exam: PE: *while obtaining right hip xrays, pt accidently rolled off the stretcher but was caught by commodities trader-did not hit her head/no LOC - ct images ordered Constitutional: Well developed, well nourished, no acute distress, non-toxic appearance. HENT: Normocephalic, atraumatic, dry mucous membranes Eyes: Pupils equal and reactive, EOMI, conjunctiva normal, no discharge. Neck: Normal range of motion, supple,Nexus C-spine criteria are negative: There is no post midline tenderness, the patient is not intoxicated, there is a normal level of alertness, there are no focal neurologic deficits and there are no distracting injuries. Cardiovascular: S1/2 present, regular rhythm Lungs & Thorax: Speaking in full sentences, bilateral equal chest rise, no tachypnea or increased work of breathing Abdomen: soft, no tenderness, Skin: Warm, dry, no erythema, no rash, no abrasion Back: No midline spinal step-offs, reports chronic midline lumbar pain-cannot reproduce, no CVA tenderness. [] Extremities: no cyanosis, no lower extremity edema, equal DP/PT pulses, no pain in ankle joints or hips, tenderness over the lateral aspect of right knee and right distal thigh, no obvious deformity or knee ligamentous laxity, is tremulous and upon review of the EMR/neurology consultation-this is chronic Neurologic: Alert and oriented X 3, normal sensory function, no focal deficits noted. [] Psychologic: Affect normal, judgement normal, mood normal. [] EKG: EKG: [] Radiology/Procedures: Radiology/Procedures: IMAGING REPORT Signed PATIENT: PONCHO VALENZUELA MACCOUNT: [id number] : 1955 LOCATION: ER AGE: 66 SEX: F EXAM STATUS: PRE ER ORD. PHYSICIAN: AYESHA HORNER DO REASON: right knee PAIN PROCEDURE: KNEE RIGHT 3V EXAMINATION: XR KNEE 3 VIEWS_RT CLINICAL HISTORY: Right knee pain. TECHNIQUE: XR KNEE 3 VIEWS_RT COMPARISON: None FINDINGS/ IMPRESSION: Joint spaces and alignment maintained. No acute fracture. Tiny suprapatellar enthesophyte. No significant joint effusion. Vascular calcifications. Electronically signed by: Colby Wilson DO (08/07/2021 10:21 PM) [facility] DICTATED and SIGNED BY: COLBY WILSON DO DATE: 08/07/[id number] 0 IMAGING REPORT Signed PATIENT: PONCHO VALENZUELA MACCOUNT: [id number] : 1955 LOCATION: ER AGE: 66 SEX: F EXAM STATUS: PRE ER ORD. PHYSICIAN: AYESHA HORNER DO REASON: low back pain PROCEDURE: CT HEAD AND CERVICAL SPINE WO Exam: CT head and cervical spine without contrast INDICATION: Lower back pain TECHNIQUE: Sequential axial images through the head and cervical spine were obtained without the administration of IV contrast. Exposure: One or more of the following in the visualized dose reduction techniques were utilized for this examination: 1. Automated exposure control 2. Adjustment of the MA and/or KV according to patient size 3. Use of iterative of reconstructive technique Comparisons: 02/13/2021 FINDINGS: Head: No focal parenchymal lesion or hemorrhage is identified. There is no midline shift or sulcal effacement. Moderate patchy hypodensity in the periventricular white matter similar to prior study. No acute vascular territory infarction is identified. Mckeon-white distinction is preserved. The ventricular system is within normal limits without compression hydrocephalus. The basal cisterns are well maintained. The visualized portions of the paranasal sinuses and mastoid air cells are well- pneumatized. No acute fractures. Cervical spine: Straightening of the cervical spine which may positional. Vertebral body heights are well-maintained. Fracture to the cervical spine is not identified. Mild multilevel spondylotic changes in cervical spine with degenerative disc disease greatest at C5-C6. Visualized paraspinal soft tissues are unremarkable. IMPRESSION: 1. No acute intracranial abnormality. 2. Negative CT C-spine for acute traumatic injury. Electronically signed by: Agapito Long MD (08/07/2021 10:37 PM) [facility] DICTATED and SIGNED BY: AGAPITO LONG MD DATE: 08/07/[id number] 0 IMAGING REPORT Signed PATIENT: PONCHO VALENZUELA MACCOUNT: [id number] : 1955 LOCATION: ER AGE: 66 SEX: F EXAM STATUS: REG ER ORD. PHYSICIAN: AYESHA HORNER DO REASON: low back pain PROCEDURE: CT CHEST ABDOMEN PELVIS WO Exam: CT chest, abdomen and pelvis without contrast. CT thoracic and lumbar spine INDICATION: Lower back pain TECHNIQUE: Sequential axial images through the chest, abdomen and pelvis obtained without IV contrast. Sagittal and coronal reformatted images were rec onstructed from the axial data and reviewed. Cone-down reconstructed images of the thoracic and lumbar spine. Exposure: One or more of the following in the visualized dose reduction techniques were utilized for this examination: 1. Automated exposure control 2. Adjustment of the MA and/or KV according to patient size 3. Use of iterative of reconstructive technique Comparisons: 01/21/2021 FINDINGS: Visualized portions of the thyroid are unremarkable. No enlargement is not lymph nodes are identified. Right size is normal. No pericardial effusion. Moderate coronary artery calcifications. Thoracic aorta has normal course and caliber. Pulmonary artery is not enlarged. Airways are patent. No consolidation or pneumothorax. No suspicious lung nodules. No pleural effusion or thickening. Evaluation solid abdominal organs limited to a to noncontrast technique. Liver, spleen, pancreas and adrenals are unremarkable. Gallstone noted within the gallbladder. No perinephric inflammation or hydronephrosis. Nonobstructing renal calculi noted bilaterally. No ureteral calculi are seen. Bladder is partially distended and appears thin-walled. Uterus is absent. No abnormal adnexal mass. Moderate amount stool noted throughout the colon. Appendix is normal. No free intra-abdominal air or fluid. No obstruction. Abdominal aorta has normal course and caliber. No enlarged intra-abdominal lymph nodes are identified. No suspicious osseous lesions or acute fractures. Thoracolumbar spine: Vertebral body heights and alignment are well-maintained. Fracture to the thoracolumbar spine is not identified. Spondylotic change in cervical spine with degenerative disc disease greatest at L2-L3, L3-L4. Mild bilateral facet arthropathy noted in the lumbar spine. IMPRESSION: 1. No sequela of acute traumatic injury identified within the chest, abdomen or pelvis. 2. Negative CT thoracolumbar spine for acute traumatic injury. Electronically signed by: Agapito Long MD (08/07/2021 10:48 PM) [facility] DICTATED and SIGNED BY: AGAPITO LONG MD DATE: 08/07/21 [id number] 0 Course & Med Decision Making: Course & Med Decision Making Pertinent Labs and Imaging studies reviewed. (See chart for details) Concern for right knee pain with patellar bone spur after falling out of a wheelchair. No external signs of trauma, no deformities. Due to rolling out of ED stretcher, CT images were preformed. No acute injury. On reevaluation patient is sleeping comfortably and requests nicotine patch. Patient with normal renal function and unremarkable labs. Will recommend [id number] analgesia and Voltaren gel. Will discharge home with strict ED return precautions were given for repeat head injury, confusion or severe pain. Encouraged urgent outpatient follow-up with PMD for routine care, orthopedic surgery for definitive management of knee pain. Life-threatening processes were considered but are low suspicion at this time, given history, physical exam and ED workup. Pt was educated on all prescription medications and adverse effects. All patient's questions were answered and pt was stable at time of discharge. Life/limb-threatening differential includes but is not limited to, avascular necrosis, septic arthritis, malignancy, compartment syndrome, fracture/ligamentous injury/overuse, decompression sickness, seronegative spondyloarthropathies, trauma including dislocation/fracture, Lyme disease, lupus, arthritis differentials, gout/pseudogout or decompression sickness. I have spoken with the patient and/or caregivers. I explained the patient's condition, diagnoses and treatment plan based on the information available to me at this time. I have answered the patient and/or caregiver's questions and addressed any concerns. The patient and/or caregivers have a good understanding of patient's diagnosis, condition and treatment plan as can be expected at this point. Vital signs have been stable. Patient's condition is stable and appropriate for discharge from the emergency department. Patient will pursue further outpatient evaluation with primary care physician or other designated or consulting physician as outlined in the discharge instructions. The patient and/or caregivers are agreeable to this plan of care and follow-up instructions have been explained in detail. The patient and/or caregivers have received these instructions in written form and have expressed an understanding of the discharge instructions. The patient and/or caregivers are aware that any significant change of condition or worsening of symptoms should prompt immediate return to this or the closest emergency department or call to 911. Lexi Disclaimer: Lexi Disclaimer: This electronic medical record was generated, in whole or in part, using a voice recognition dictation system. Departure Departure Impression: Primary Impression: Knee pain, right Additional Impression: Bone spur Disposition: HOME / SELF CARE / HOMELESS Condition: STABLE Referrals: UNKNOWN PCP NAME (PCP) Follow-up with your primary care physician in 24 to 48 hours OR FOLLOW UP WITH FAMILY MEDICINE: [address], [address] [place] [address] Patient Instructions: Knee Pain Additional Instructions: FOLLOW UP WITH ORTHOPEDICS: FOR DEFINITIVE MANAGEMENT of bone spur/chronic knee pain Orthopaedic Surgery [address], [address] [place] [address] EMERGENCY DEPARTMENT GENERAL DISCHARGE INSTRUCTIONS Thank you for coming to [facility] Emergency Department (ED) today and trusting us with you care. We trust that you had a positive experience in our Emergency Department. If you wish to speak to the department management, you may call the Director at [phone]. YOUR FOLLOW UP INSTRUCTIONS ARE FOLLOWS: 1. Do you have a private Doctor? If you do not have a private doctor, please ask for a resource list of physicians or clinics that may be able to assist you with follow up care. 2. The Emergency Physicain has interpreted your x-rays. The X-Ray specialist will also review them. If there is a change in the findings, you will be notified in 48 hours when at all possible. 3. A lab test or culture has been done, your results will be reviewed and you will be notified if you need a change in treatment. ADDITIONAL INSTRUCTIONS AND INFORMATION: 1. Your care today has been supervised by a physician who is specially trained in emergency care. Many problems require more than one evaluation for a complete diagnosis and treatment. We recommend that you schedule your follow up appointment as recommended to ensure complete treatment of you illness or injury. If you are unable to obtain follow up care and continue to have a problem, or if your condition worsens, we recommend that you return to the ED. 2. We are not able to safely determine your condition over the phone nor are we able to give sound medical advice over the phone. For these safety reasons, if you call for medical advice we will ask you to come to the ED for further evaluation. 3. If you have any questions regarding these discharge instructions please call the ED at [phone]. SAFETY INFORMATION: In the interest of safety, wellness, and injury prevention; we encourage you to wear your sealbelt, if you smoke; quite smoking, and we encourage family to use a protective helmet for bicycling and other sporting events that present an increased risk for head injury. IF YOUR SYMPTOMS WORSEN OR NEW SYMPTOMS DEVELOP, OR YOU HAVE CONCERNS ABOUT YOUR CONDITION; OR IF YOUR CONDITION WORSENS WHILE YOU ARE WAITING FOR YOUR FOLLOW UP APPOINTMENT; EITHER CONTACT YOUR PRIMARY CARE DOCTOR, THE PHYSICIAN WHOSE NAME AND NUMBER YOU WERE GIVEN, OR RETURN TO THE ED IMMEDIATELY. Scripts Diclofenac Sodium (Voltaren Arthritis Pain) 20 Gm Gel..gram. 4 GM TP BID, #1 EACH 1% gel, apply max 16gm/joint/day Prov: AYESHA HORNER DO 08/08/21 AYESHA HORNER DO Aug 07, 2021 21:15
[2021-08-07] MEDS ORDERED: ACETAMINOPHEN 325 MG TABLET. PO ONE (22:00)
--- NOTE | 2021-08-07 22:24 | RAD ---
EXAMINATION: XR KNEE 3 VIEWS_RT CLINICAL HISTORY: Right knee pain. TECHNIQUE: XR KNEE 3 VIEWS_RT COMPARISON: None FINDINGS/ IMPRESSION: Joint spaces and alignment maintained. No acute fracture. Tiny suprapatellar enthesophyte. No signifi cant joint effusion. Vascular calcifications. Electronically signed by: Colby Crocker DO (08/07/2021 10:21 PM) JOO
--- NOTE | 2021-08-07 22:40 | RAD ---
Exam: CT head and cervical spine without contrast INDICATION: Lower back pain TECHNIQUE: Sequential axial images through the head and cervical spine were obtained without the admi nistration of IV contrast. Exposure: One or more of the following in the visualized dose reduction techniques were utilized for this examination: 1. Automated exposure control 2. Adjustment of the MA and/or KV according to patient size 3. Use of iterative of reconstructive technique Comparisons: 02/13/2021 FINDINGS: Head: No focal parenchymal lesion or hemorrhage is identified. There is no midline shift or sulcal effaceme nt. Moderate patchy hypodensity in the periventricular white matter similar to prior study. No acute vasc ular territory infarction is identified. Mckeon-white distinction is preserved. The ventricular system is within normal limits without compression hydrocephalus. The basal cisterns are well maintained. The visualized portions of the paranasal sinuses and mastoid air cells are well-pneumatized. No acute fractures. Cervical spine: Straightening of the cervical spine which may positional. Vertebral body heights are well-maintained. Fracture to the cervical spine is not identified. Mild multilevel spondylotic changes in cervical spine with degenerative disc disease greatest at C5-C 6. Visualized paraspinal soft tissues are unremarkable. IMPRESSION: 1. No acute intracranial abnormality. 2. Negative CT C-spine for acute traumatic injury. Electronically signed by: Agapito Colmenares MD (08/07/2021 10:37 PM) [facility]
--- NOTE | 2021-08-07 22:50 | RAD ---
Exam: CT chest, abdomen and pelvis without contrast. CT thoracic and lumbar spine INDICATION: Lower back pain TECHNIQUE: Sequential axial images through the chest, abdomen and pelvis obtained without IV contrast . Sagittal and coronal reformatted images were reconstructed from the axial data and reviewed. Cone-d own reconstructed images of the thoracic and lumbar spine. Exposure: One or more of the following in the visualized dose reduction techniques were utilized for this examination: 1. Automated exposure control 2. Adjustment of the MA and/or KV according to patient size 3. Use of iterative of reconstructive technique Comparisons: 01/21/2021 FINDINGS: Visualized portions of the thyroid are unremarkable. No enlargement is not lymph nodes are identified . Right size is normal. No pericardial effusion. Moderate coronary artery calcifications. Thoracic aort a has normal course and caliber. Pulmonary artery is not enlarged. Airways are patent. No consolidation or pneumothorax. No suspicious lung nodules. No pleural effusion or thickening. Evaluation solid abdominal organs limited to a to noncontrast technique. Liver, spleen, pancreas and adrenals are unremarkable. Gallstone noted within the gallbladder. No perinephric inflammation or hydronephrosis. Nonobstructing renal calculi noted bilaterally. No ure teral calculi are seen. Bladder is partially distended and appears thin-walled. Uterus is absent. No abnormal adnexal mass. Moderate amount stool noted throughout the colon. Appendix is normal. No free intra-abdominal air or fluid. No obstruction. Abdominal aorta has normal course and caliber. No enlarged intra-abdominal lymph nodes are identified. No suspicious osseous lesions or acute fractures. Thoracolumbar spine: Vertebral body heights and alignment are well-maintained. Fracture to the thoracolumbar spine is not identified. Spondylotic change in cervical spine with degenerative disc disease greatest at L2-L3, L3-L4. Mild bi lateral facet arthropathy noted in the lumbar spine. IMPRESSION: 1. No sequela of acute traumatic injury identified within the chest, abdomen or pelvis. 2. Negative CT thoracolumbar spine for acute traumatic injury. Electronically signed by: Agapito Colmenares MD (08/07/2021 10:48 PM) [facility]
[2021-08-07 23:56] LABS: BASO # 0.1 x10^3/uL (0.0-0.2); BASO % 1 % (0-3); EOS # 0.1 x10^3/uL (0.0-0.7); EOS % 3 % (0-3); HEMATOCRIT 50.2 % (36.0-47.0); HEMOGLOBIN 16.8 g/dL (12.0-15.5); LYMPH # 1.3 x10^3/uL (1.0-4.8); LYMPH % 22 % (24-48); MEAN CORPUSCULAR HEMOGLOBIN 29 pg (25-35); MEAN CORPUSCULAR HGB CONC 33 g/dL (31-37); MEAN CORPUSCULAR VOLUME 88 fL (79-100); MONO # 0.7 x10^3/uL (0.0-1.1); MONO % 11 % (0-9); NEUT # 3.9 x10^3/uL (1.8-7.7); NEUT % 64 % (31-73); PLATELET COUNT 169 x10^3/uL (140-400); RED BLOOD COUNT 5.71 x10^6/uL (3.50-5.40); RED CELL DISTRIBUTION WIDTH 15.8 % (11.5-14.5)
[2021-08-08 00:10] LABS: PROTHROMBIN TIME PATIENT 13.2 SEC (11.7-14.0)
[2021-08-08 00:12] LABS: CALCIUM 9.2 mg/dL (8.5-10.1); CREATININE 0.9 mg/dL (0.6-1.0); GFR 62.5; POTASSIUM 3.6 mmol/L (3.5-5.1)
[2021-08-08 00:18] VITALS: BP 111/62
[2021-08-08 00:18] LABS: ALBUMIN 3.5 g/dL (3.4-5.0); TOTAL BILIRUBIN 0.5 mg/dL (0.2-1.0); TOTAL PROTEIN 7.1 g/dL (6.4-8.2)
[2021-08-08] MEDS ORDERED: DICL20GE TP (00:40)
[2021-08-08] MEDS: DICLOFENAC SODIUM 1% TOPICAL GEL 100GM TUBE. TP ONE ×2 (00:57→01:00)
[2021-08-08] MEDS ORDERED: NICOTINE 21MG PATCH. TD ONE (01:00)
== END 2021-08-08 01:30 | disposition home or self-care (01) ==
LOC: ER 20:43
DX: M25.561 Pain in right knee (principal); M79.651 Pain in right thigh; G89.11 Acute pain due to trauma; J44.9 Chronic obstructive pulmonary disease, unspecified; K21.9 Gastro-esophageal reflux disease without esophagitis; E78.00 Pure hypercholesterolemia, unspecified; I10 Essential (primary) hypertension; I25.2 Old myocardial infarction; Z86.73 Personal history of transient ischemic attack (TIA), and cerebral infarction without residual deficits; G89.29 Other chronic pain; F17.200 Nicotine dependence, unspecified, uncomplicated; I25.10 Atherosclerotic heart disease of native coronary artery without angina pectoris; W18.39XA Other fall on same level, initial encounter; Y93.89 Activity, other specified; Y92.89 Other specified places as the place of occurrence of the external cause; Y99.8 Other external cause status
CPT/HCPCS: 36415; 70450; 71250; 72125; 73562; 74176; 80053; 85025; 85610; 85730; 99285-25